=== PATIENT | male | born 1945 | race Caucasian/White ===

== ENCOUNTER 2017-09-09 03:52 | Inpatient (IN) | payer MEDICARE, BC ==
[2017-09-09 05:29] LABS: Amorphous Sediment,Urine Occasional /hpf; Appearance,Urine Cloudy (Clear); Bacteria,Urine Rare /hpf; Bilirubin,Urine Negative (Negative); Blood,Urine Moderate (Negative); Color,Urine Yellow; Glucose,Urine (UA) Negative (Negative); Ketones,Urine Negative (Negative); Leukocyte Esterase,Urine Large (Negative); Mucus,Urine Rare /hpf; Nitrite,Urine Positive (Negative); PH, Urine 6.5 (5.0-8.0); Protein,Urine Trace (Negative); RBC,Urine 13 /hpf (0-5); Specific Gravity,Urine 1.009 (1.001-1.035); Urobilinogen,Urine <2.0 mg/dL (<2.0); WBC,Urine >182 /hpf (0-5)
--- NOTE | 2017-09-09 06:27 | ED ---
Male Urogenital HPI - General Chief complaint: Urogenital Stated complaint: UTI Time Seen by Provider: 09/09/17 04:17 Source: patient, EMS Mode of arrival: EMS Limitations: no limitations - History of Present Illness Initial comments: 72 years old male comes in with complaints at term his James is not working well , also has a history of UTI, stated that he was seen for the UTIs at another hospital his urine cultures grew pseudomonas that it provides IV treatment. But he himself has no complaints right now no fever no chills no chest pain or shortness of breath no abdominal pain no frequency urgency dysuria - Related Data Allergies Allergy/AdvReac Type Severity Reaction Status Date / Time latex Allergy Rash/Hives Verified 09/09/17 03:59 Penicillins Allergy Rash/Hives Verified 09/09/17 03:59 tetanus immune globulin Allergy Rash/Hives Verified 09/09/17 03:59 Review of Systems ROS Statement: Those systems with pertinent positive or pertinent negative responses have been documented in the HPI. ROS Other: All systems not noted in ROS Statement are negative. Past Medical History Additional Past Medical History / Comment(s): multiple sclerosis. UTI. History of Any Multi-Drug Resistant Organisms: None Reported Past Surgical History: Cholecystectomy, Tonsillectomy Additional Past Surgical History / Comment(s): right leg ORIF. Past Psychological History: No Psychological Hx Reported Smoking Status: Former smoker Past Alcohol Use History: None Reported Past Drug Use History: None Reported General Exam - General Exam Comments Initial Comments: General: The patient is awake and alert, in no distress, and does not appear acutely ill. Skin: Skin is warm and dry and no rashes or lesions are noted. Eye: Pupils are equal, round and reactive to light, extra-ocular movements are intact; there is normal conjunctiva bilaterally. Ears, nose, mouth and throat: There are moist mucous membranes and no oral lesions. Neck: The neck is supple, there is no tenderness or JVD. Cardiovascular: There is a regular rate and rhythm. No murmur, rub or gallop is appreciated. Respiratory: To auscultation bilateral, no wheezing no rhonchi no distress respiratory gordon noticed Gastrointestinal: Soft, non-distended, non-tender abdomen without masses or organomegaly noted. There is no rebound or guarding present. Bowel sounds are unremarkable. Back: There is no tenderness to palpation in the midline. There is no obvious deformity. Musculoskeletal: Normal ROM, no tenderness, There is no pedal edema. There is no calf tenderness or swelling. No cords were appreciated. Neurological: CN II-XII intact, Cranial nerves III through XII are intact. There are no obvious motor or sensory deficits. Coordination appears grossly intact. Speech is normal. Psychiatric: Cooperative, appropriate mood & affect, normal judgment. Limitations: no limitations Course Vital Signs 09/09/17 03:55 Temperature 97.9 F Pulse Rate 96 Respiratory 20 Rate Blood Pressure 154/69 O2 Sat by Pulse 96 Oximetry family stated that he has no way to get around and previously oral antibiotic has not cured the UTIs is requesting admission for the IV antibiotics Medical Decision Making - Lab Data Lab Results 09/09/17 Range/Units 05:02 Urine Color Yellow Urine Appearance Cloudy (Clear) Urine pH 6.5 (5.0-8.0) Ur Specific [place] 1.009 (1.001-1.035) Urine Protein Trace H (Negative) Urine Glucose (UA) Negative (Negative) Urine Ketones Negative (Negative) Urine Blood Moderate H (Negative) Urine Nitrite Positive (Negative) Urine Bilirubin Negative (Negative) Urine Urobilinogen <2.0 (<2.0) mg/dL Ur Leukocyte Esterase Large H (Negative) Urine RBC 13 H (0-5) /hpf Urine WBC >182 H (0-5) /hpf Urine WBC Clumps Many H (None) /hpf Amorphous Sediment Occasional H (None) /hpf Urine Bacteria Rare H (None) /hpf Urine Mucus Rare H (None) /hpf Disposition Clinical Impression: UTI (urinary tract infection) Disposition: ADMITTED IP TO THIS [facility] Condition: Good Referrals: Nonstaff,Physician [Primary Care Provider] - 1-2 days
[2017-09-09] MEDS ORDERED: SODIUM CHLORIDE 0.9% 1,000 ML IV ONE (06:44)
[2017-09-09] MEDS ORDERED: cefTRIAXone IN SWFI 1,000 MG/10 ML SYRINGE IVP STA (06:46)
[2017-09-09 10:19] VITALS: BMI 34.4
[2017-09-09] MEDS ORDERED: CLOTRIMAZOLE 1% CREAM 15 GM TUBE TOPICAL PRN (10:51)
[2017-09-09 11:50] LABS: Glucose,Whole Blood 106 mg/dL (75-99)
[2017-09-09] MEDS: TAMSULOSIN 0.4 MG CAP.ER.24H PO SCH (11:57)
[2017-09-09] MEDS: lamoTRIgine 100 MG TAB PO SCH ×2 (11:58→22:00)
[2017-09-09] MEDS: LACOSAMIDE 150 MG TABLET PO SCH ×2 (12:18→22:22)
--- NOTE | 2017-09-09 12:36 | P.HPIM ---
History of Present Illness This is a pleasant 72 years old female with past medical history of multiple sclerosis, status post cholecystectomy, who presents because of recurrent urinary tract infection for the last 56 years. Patient states he has history of MS with neurogenic bladder status post indwelling James catheter for the last 1 year. And he has frequent urinary tract infections he has one in July, and the last one was about 2 weeks ago. He has a visiting doctor once a month with treatment for that. And as per significant other at bedside patient had positive culture for Pseudomonas on 07/24/2017. Over the last 2-3 days the significant others was noticed that his urine is becoming foul-smelling. And the catheters was blocked with difficult to flush started decided to come to the emergency room and his James catheter was change. Urine analysis was suspicion for infection and he was admitted to the hospital for further treatment. Patient also feeling generally weak which is usually happens when he have UTI as per patient and significant other. Patient denies abdominal pain. No chest pain. No dyspnea. No change in bowel habits or fever. Patient at baseline is bed-bound due to his MS disease and History of leg fracture Review of Systems CONSTITUTIONAL: No fever, no malaise, no fatigue. HEENT: No recent visual problems or hearing problems. Denied any sore throat. CARDIOVASCULAR: No orthopnea, PND, no palpitations, no syncope. PULMONARY: No shortness of breath, no cough, no hemoptysis. GASTROINTESTINAL: No diarrhea, no nausea, no vomiting, no abdominal pain. Normoactive bowel sounds. NEUROLOGICAL: No headaches, no weakness, no numbness. HEMATOLOGICAL: Denies any bleeding or petechiae. MUSCULOSKELETAL/RHEUMATOLOGICAL: Denies any joint pain, swelling, or any muscle pain. ENDOCRINE: Denies any polyuria or polydipsia. Past Medical History Additional Past Medical History / Comment(s): multiple sclerosis. UTI. History of Any Multi-Drug Resistant Organisms: None Reported Past Surgical History: Cholecystectomy, Tonsillectomy Additional Past Surgical History / Comment(s): right leg ORIF. Smoking Status: Former smoker Medications and Allergies Home Medications Medication Instructions Recorded Confirmed Type Aspirin EC [Ecotrin Low Dose] 81 mg PO DAILY 09/09/17 09/09/17 History Cholecalciferol [Vitamin D3] 1,000 unit PO BID 09/09/17 09/09/17 History Cyanocobalamin [Vitamin B-12 1,000 mcg SQ QMONTH 09/09/17 09/09/17 History Injection] Desenex Topical 1 applic TOPICAL BID PRN 09/09/17 09/09/17 History Dimethyl Fumarate [Tecfidera] 240 mg PO BID 09/09/17 09/09/17 History Furosemide [Lasix] 40 mg PO DAILY 09/09/17 09/09/17 History Lacosamide [Vimpat] 75 mg PO TID 09/09/17 09/09/17 History Lisinopril [Zestril] 10 mg PO DAILY 09/09/17 09/09/17 History Menthol/Zinc Oxide [Calmoseptine 1 applic TOPICAL BID 09/09/17 09/09/17 History Ointment] Polyethylene Glycol 3350 [Miralax] 17 gm PO BID 09/09/17 09/09/17 History Ranitidine HCl [Zantac] 150 mg PO BID 09/09/17 09/09/17 History Tamsulosin HCl [Flomax] 0.4 mg PO DAILY 09/09/17 09/09/17 History fentaNYL 50MCG/HR PATCH [Duragesic 50 mcg TRANSDERM Q72H 09/09/17 09/09/17 History 50MCG/HR] lamoTRIgine [LaMICtal] 200 mg PO BID 09/09/17 09/09/17 History Allergies Allergy/AdvReac Type Severity Reaction Status Date / Time latex Allergy Rash/Hives Verified 09/09/17 09:52 Penicillins Allergy Rash/Hives Verified 09/09/17 09:52 tetanus immune globulin Allergy Rash/Hives Verified 09/09/17 09:52 Physical Exam Vitals: Vital Signs Temp Pulse Pulse Resp BP BP Pulse Ox 09/09/17 08:37 97.9 F 82 18 144/75 98 09/09/17 08:21 97.2 F L 83 16 130/68 100 09/09/17 03:55 97.9 F 96 20 154/69 96 Intake and Output 09/08/17 09/09/17 09/09/17 22:59 06:59 14:59 Other: Voiding Method Indwelling Catheter Weight 108.862 kg 108.862 kg GENERAL: The patient is alert and oriented x3, not in any acute distress. Well developed, well nourished. HEENT: Pupils are round and equally reacting to light. EOMI. No scleral icterus. No conjunctival pallor. Normocephalic, atraumatic. No pharyngeal erythema. No thyromegaly. CARDIOVASCULAR: S1 and S2 present. No murmurs, rubs, or gallops. PULMONARY: Chest is clear to auscultation, no wheezing or crackles. ABDOMEN: Soft, nontender, nondistended, normoactive bowel sounds. No palpable organomegaly. genitourinary system: James catheter in a Place, working. With no surrounding leakage. Genitourinary examination was unremarkable MUSCULOSKELETAL: No joint swelling or deformity. EXTREMITIES: No cyanosis, clubbing, or pedal edema. NEUROLOGICAL: Gross neurological examination did not reveal any focal deficits. SKIN: No rashes. Results Labs: Abnormal Lab Results - Last 24 Hours (Table) 09/09/17 09/09/17 Range/Units 05:02 11:48 POC Glucose (mg/dL) 106 H (75-99) mg/dL Urine Protein Trace H (Negative) Urine Blood Moderate H (Negative) Ur Leukocyte Esterase Large H (Negative) Urine RBC 13 H (0-5) /hpf Urine WBC >182 H (0-5) /hpf Urine WBC Clumps Many H (None) /hpf Amorphous Sediment Occasional H (None) /hpf Urine Bacteria Rare H (None) /hpf Urine Mucus Rare H (None) /hpf Microbiology - Last 24 Hours (Table) 09/09/17 05:02 Urine Culture - Preliminary Urine,Catheterized Thrombosis Risk Factor Assmnt - Choose All That Apply Any of the Below Risk Factors Present?: Yes Each Factor Represents 1 point: Medical pt on bed rest, Minor surgery planned, Varicose veins Other Risk Factors: Yes Each Risk Factor Represents 2 Points: Age 61-74 years Other congenital or acquired thrombophilia - If yes, enter type in comment: No Thrombosis Risk Factor Assessment Total Risk Factor Score: 5 Thrombosis Risk Factor Assessment Level: High Risk Assessment and Plan Plan: -Recurrent Urinary tract infection, failed outpatient treatment. UA is suspicious for infection. UC: Pending. Patient was started on ceftriaxone will continue with that. We'll ask for infectious disease consultation. -Recurrent urinary tract infection. On on indwelling James catheter. Last for urological evaluation. -Multiple sclerosis, continue same treatment -Neurogenic bladder, secondary to above DVT prophylaxis subcutaneous heparin GI prophylaxis Pepcid Prognosis is guarded
[2017-09-09 13:16] LABS: Basophils % (A) 0 %; Eosinophils # (A) 0.1 k/uL (0-0.7); Eosinophils % (A) 2 %; HCT 36.3 % (39.0-53.0); HGB 12.1 gm/dL (13.0-17.5); Lymphocytes # (A) 0.9 k/uL (1.0-4.8); Lymphocytes % (A) 14 %; MCH 31.7 pg (25.0-35.0); MCHC 33.4 g/dL (31.0-37.0); MCV 94.9 fL (80.0-100.0); Mean Platelet Volume 6.7; Monocytes # (A) 0.5 k/uL (0-1.0); Monocytes % (A) 7 %; Neutrophils # (A) 5.1 k/uL (1.3-7.7); Neutrophils % (A) 75 %; Platelet Count 257 k/uL (150-450); RBC 3.82 m/uL (4.30-5.90); RDW 13.6 % (11.5-15.5); WBC 6.8 k/uL (3.8-10.6)
[2017-09-09 13:26] LABS: Anion Gap 8 mmol/L; Blood Urea Nitrogen 14 mg/dL (9-20); Calcium 9.4 mg/dL (8.4-10.2); Carbon Dioxide 24 mmol/L (22-30); Chloride 106 mmol/L (98-107); Glucose 92 mg/dL (74-99); Potassium 4.2 mmol/L (3.5-5.1); Sodium 138 mmol/L (137-145)
[2017-09-09 13:29] LABS: INR 1.1 (<1.2); Partial Thromboplastin Time 22.2 sec (22.0-30.0); Prothrombin Time 10.7 sec (9.0-12.0)
[2017-09-09] MEDS: HEPARIN SODIUM,PORCINE 5,000 UNIT/ML 1 ML VIAL SQ SCH ×2 (15:43→22:00)
[2017-09-09] MEDS ORDERED: LACOSAMIDE 50 MG TABLET PO SCH (18:06)
[2017-09-09] MEDS: LACOSAMIDE 50 MG TABLET PO SCH (18:16)
--- NOTE | 2017-09-09 19:17 | P.GSCN ---
History of Present Illness Consult date: 09/09/17 Reason for Consult: Urinary Retention, UTI Requesting physician: Evelio E Sheet History of present illness: The patient is a 72-year-old white male with advanced multiple sclerosis. He developed acute urinary retention in late 2015. A James catheter was placed, with a return of 800 mL. Flomax was prescribed, with the intent of him being given a voiding trial. However, this has not been done due to his inability to ambulate. The James catheter is being changed every 2 weeks. It has recently become occluded. He had gross hematuria 2 weeks ago. He has been treated with oral antibiotics for a UTI. Review of Systems - Constitutional Denies chills, Denies fever, Denies weakness - Cardiovascular Denies chest pain - Respiratory Denies dyspnea - Genitourinary Reports urinary retention, Denies hematuria Past Medical History Additional Past Medical History / Comment(s): multiple sclerosis. UTI. History of Any Multi-Drug Resistant Organisms: None Reported Past Surgical History: Cholecystectomy, Tonsillectomy Additional Past Surgical History / Comment(s): right leg ORIF. Smoking Status: Former smoker Medications and Allergies Home Medications Medication Instructions Recorded Confirmed Type Aspirin EC [Ecotrin Low Dose] 81 mg PO DAILY 09/09/17 09/09/17 History Cholecalciferol [Vitamin D3] 1,000 unit PO BID 09/09/17 09/09/17 History Cyanocobalamin [Vitamin B-12 1,000 mcg SQ QMONTH 09/09/17 09/09/17 History Injection] Desenex Topical 1 applic TOPICAL BID PRN 09/09/17 09/09/17 History Dimethyl Fumarate [Tecfidera] 240 mg PO BID 09/09/17 09/09/17 History Furosemide [Lasix] 40 mg PO DAILY 09/09/17 09/09/17 History Lacosamide [Vimpat] 75 mg PO TID 09/09/17 09/09/17 History Lisinopril [Zestril] 10 mg PO DAILY 09/09/17 09/09/17 History Menthol/Zinc Oxide [Calmoseptine 1 applic TOPICAL BID 09/09/17 09/09/17 History Ointment] Polyethylene Glycol 3350 [Miralax] 17 gm PO BID 09/09/17 09/09/17 History Ranitidine HCl [Zantac] 150 mg PO BID 09/09/17 09/09/17 History Tamsulosin HCl [Flomax] 0.4 mg PO DAILY 09/09/17 09/09/17 History fentaNYL 50MCG/HR PATCH [Duragesic 50 mcg TRANSDERM Q72H 09/09/17 09/09/17 History 50MCG/HR] lamoTRIgine [LaMICtal] 200 mg PO BID 09/09/17 09/09/17 History Allergies Allergy/AdvReac Type Severity Reaction Status Date / Time latex Allergy Rash/Hives Verified 09/09/17 09:52 Penicillins Allergy Rash/Hives Verified 09/09/17 09:52 tetanus immune globulin Allergy Rash/Hives Verified 09/09/17 09:52 Surgical - Exam Vital Signs Temp Pulse Resp BP Pulse Ox 97.9 F 96 20 154/69 96 09/09/17 03:55 09/09/17 03:55 09/09/17 03:55 09/09/17 03:55 09/09/17 03:55 - General well developed, well nourished, no distress - Respiratory normal respiratory effort - Abdomen Abdomen: soft, non tender, no masses Hernia: none - Genitourinary normal penis with no external lesions, testicles non-tender - Rectum Prostate is mildly enlarged and smooth. Rectum: normal sphincter tone, no masses Results - Labs 09/09/17 12:54 09/09/17 12:54 Abnormal Lab Results - Last 24 Hours (Table) 09/09/17 09/09/17 09/09/17 Range/Units 05:02 11:48 12:54 RBC 3.82 L (4.30-5.90) m/uL Hgb 12.1 L (13.0-17.5) gm/dL Hct 36.3 L (39.0-53.0) % Lymphocytes # 0.9 L (1.0-4.8) k/uL Creatinine (0.66-1.25) mg/dL POC Glucose (mg/dL) 106 H (75-99) mg/dL Urine Protein Trace H (Negative) Urine Blood Moderate H (Negative) Ur Leukocyte Esterase Large H (Negative) Urine RBC 13 H (0-5) /hpf Urine WBC >182 H (0-5) /hpf Urine WBC Clumps Many H (None) /hpf Amorphous Sediment Occasional H (None) /hpf Urine Bacteria Rare H (None) /hpf Urine Mucus Rare H (None) /hpf 09/09/17 Range/Units 12:54 RBC (4.30-5.90) m/uL Hgb (13.0-17.5) gm/dL Hct (39.0-53.0) % Lymphocytes # (1.0-4.8) k/uL Creatinine 0.57 L (0.66-1.25) mg/dL POC Glucose (mg/dL) (75-99) mg/dL Urine Protein (Negative) Urine Blood (Negative) Ur Leukocyte Esterase (Negative) Urine RBC (0-5) /hpf Urine WBC (0-5) /hpf Urine WBC Clumps (None) /hpf Amorphous Sediment (None) /hpf Urine Bacteria (None) /hpf Urine Mucus (None) /hpf Microbiology - Last 24 Hours (Table) 09/09/17 05:02 Urine Culture - Preliminary Urine,Catheterized Diabetes panel 09/09/17 Range/Units 12:54 Sodium 138 (137-145) mmol/L Potassium 4.2 (3.5-5.1) mmol/L Chloride 106 (98-107) mmol/L Carbon Dioxide 24 (22-30) mmol/L BUN 14 (9-20) mg/dL Creatinine 0.57 L (0.66-1.25) mg/dL Glucose 92 (74-99) mg/dL Calcium 9.4 (8.4-10.2) mg/dL Calcium panel 09/09/17 Range/Units 12:54 Calcium 9.4 (8.4-10.2) mg/dL Pituitary panel 09/09/17 Range/Units 12:54 Sodium 138 (137-145) mmol/L Potassium 4.2 (3.5-5.1) mmol/L Chloride 106 (98-107) mmol/L Carbon Dioxide 24 (22-30) mmol/L BUN 14 (9-20) mg/dL Creatinine 0.57 L (0.66-1.25) mg/dL Glucose 92 (74-99) mg/dL Calcium 9.4 (8.4-10.2) mg/dL Adrenal panel 09/09/17 Range/Units 12:54 Sodium 138 (137-145) mmol/L Potassium 4.2 (3.5-5.1) mmol/L Chloride 106 (98-107) mmol/L Carbon Dioxide 24 (22-30) mmol/L BUN 14 (9-20) mg/dL Creatinine 0.57 L (0.66-1.25) mg/dL Glucose 92 (74-99) mg/dL Calcium 9.4 (8.4-10.2) mg/dL Assessment and Plan (1) Urinary retention Current Visit: Yes Status: Acute Code(s): R33.9 - RETENTION OF URINE, UNSPECIFIED SNOMED Code(s): 438428407 Plan: I had a lengthy discussion with the patient regarding his urinary retention. He has not undergone urodynamic testing. However, he is unable to ambulate and for this reason and cysts that the catheter remain in place. He states that even if he was able to void, the use of a bedside urinal this unacceptable to him. Likewise, he does not consider intermittent self-catheterization a viable option. I explained to him that a chronic indwelling catheter carries with it the risk of infection. I explained that intermittent self-catheterization is associated with a lower risk of infection. He states that he was treated for recurrent UTIs even before he had the catheter, perhaps due to incomplete bladder emptying. We discussed a suprapubic cystostomy tube, which I do not believe offers him an advantage over an indwelling James catheter. He is currently asymptomatic, and in view of this I would define his current condition as bacteriuria rather than a UTI. I explained to him that patients with chronic indwelling catheters are typically treated for a UTI only when symptomatic. His James catheter was changed this morning. I suggested that if his James catheter is irrigated 3 times weekly with Renacidin, this may reduce the problems he is having with James catheter occlusion. I have thus left with him a prescription for Renacidin. Time with Patient: Greater than 30
[2017-09-09] MEDS ORDERED: FAMOTIDINE 20 MG/2 ML VIAL IV SCH (21:00)
--- NOTE | 2017-09-09 21:08 | P.CONS ---
History of Present Illness - Reason for Consult Consult date: 09/09/17 - Chief Complaint weakness - History of Present Illness 72-year-old male who has a history of progressive multiple sclerosis. This continued to progress over time. He relates that he is no function of his lower extremities and over the last several months she's been having increasing weakness to his left arm. He is due to see his neurologist in the [place] area next month. Overall goal would to be hopefully have some further change of his medications to try to have improvement of progression of the disease. He relates he has a visiting physician and in general is been somewhat stable except over the last couple of months he's been having difficulties with urinary tract infection. He relates that the urine is strong in odor, and he's had difficulties with potential blockage of his catheter as well as some increasing weakness. The patient was having great difficulties with a catheter he can no longer be flush it was leaking, he was so weak that he could not assist his and consequently EMS was called and he was brought to hospital. His related that he has a recent outpatient urinary culture with evidence of Pseudomonas. The patient relates that he has no urinary sensation from his MS and has had a indwelling catheter now for some time. The possibility of intermittent straight catheterization apparently is not an option as long as he is at home under the care of his . This living situation is what he absolutely prefers at this time while his is able to care for him with the help of the visiting physician, home care nurse, and home health aide who helps with his baths. Is otherwise is able to flush the catheter but is not able to change them, she leaves this for the home care nurse. He was feeling quite weak did not take his temperature. Review of Systems 72-year-old male who relates he still feels poorly, his weakness has worsened as of late HEENT:Denies headache or acute visual change. Denies sinus or mouth discomforts. Denies neck stiffness or pain. Denies significant oral cavity pain. Denies difficulty on swallowing. Lungs: Denies significant shortness of breath, cough, sputum production, or hemoptysis. Cardiovascular: Denies significant shortness of breath, chest pain, chest wall pain, orthopnea, dyspnea on exertion, syncope Gastrointestinal:Denies nausea, vomiting, diarrhea, constipation, hematemesis, melena, hematochezia. No no significant change of bowel habit noticed. Musculoskeletal: Has the profound generalized weakness from his MS left arm is worsening as of late Skin: Denies new rash or lesions. No new ulcers or wounds are related.. Neuro: MS has been worse as of late, left arm is worsening making it more difficult to participate in daily activities Psychiatric:Denies anxiety or depression. Endocrine: As MS has worsened recently he has more fatigue Past Medical History Additional Past Medical History / Comment(s): multiple sclerosis. UTI. History of Any Multi-Drug Resistant Organisms: None Reported Past Surgical History: Cholecystectomy, Tonsillectomy Additional Past Surgical History / Comment(s): right leg ORIF. Additional Psychological History / Comment(s): lives with family home with his . 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 No experience. No international travel. No animals in the home. 3 adult children, the daughter occasionally does come and help. Did smoke as a younger man but it's been many years, denies significant alcohol or recreational drug use Smoking Status: Former smoker Medications and Allergies Home Medications and Allergies Comment(s): Current Medications Clotrimazole (Lotrimin Cream) 1 applic TOPICAL BID PRN PRN Reason: Rash Famotidine (Pepcid) 20 mg PO Q12HR [facility] Fentanyl (Duragesic 50mcg/Hr Patch) 1 patch TRANSDERM Q72H [facility] Last Admin: 09/09/17 12:06 Dose: 1 patch Furosemide (Lasix) 40 mg PO DAILY [facility] Heparin Sodium (Porcine) (Heparin) 5,000 unit SQ Q12HR [facility] Last Admin: 09/09/17 15:43 Dose: 5,000 unit Ceftazidime 2 gm/ Sodium (Chloride) 100 mls @ 100 mls/hr IVPB Q8HR [facility] Last Admin: 09/09/17 15:43 Dose: 100 mls/hr Lacosamide (Vimpat) 75 mg PO TID [facility] Last Admin: 09/09/17 18:16 Dose: 75 mg Lamotrigine (Lamictal) 200 mg PO BID [facility] Last Admin: 09/09/17 11:58 Dose: 200 mg Lisinopril (Zestril) 10 mg PO DAILY [facility] Dimethyl Fumarate [ (Tecfidera] 240 Mg) 240 mg PO BID [facility] Last Admin: 09/09/17 18:59 Dose: Not Given Polyethylene Glycol (Miralax) 17 gm PO BID [facility] Tamsulosin HCl (Flomax) 0.4 mg PO DAILY [facility] Last Admin: 09/09/17 11:57 Dose: 0.4 mg Home Medications Medication Instructions Recorded Confirmed Type Aspirin EC [Ecotrin Low Dose] 81 mg PO DAILY 09/09/17 09/09/17 History Cholecalciferol [Vitamin D3] 1,000 unit PO BID 09/09/17 09/09/17 History Cyanocobalamin [Vitamin B-12 1,000 mcg SQ QMONTH 09/09/17 09/09/17 History Injection] Desenex Topical 1 applic TOPICAL BID PRN 09/09/17 09/09/17 History Dimethyl Fumarate [Tecfidera] 240 mg PO BID 09/09/17 09/09/17 History Furosemide [Lasix] 40 mg PO DAILY 09/09/17 09/09/17 History Lacosamide [Vimpat] 75 mg PO TID 09/09/17 09/09/17 History Lisinopril [Zestril] 10 mg PO DAILY 09/09/17 09/09/17 History Menthol/Zinc Oxide [Calmoseptine 1 applic TOPICAL BID 09/09/17 09/09/17 History Ointment] Polyethylene Glycol 3350 [Miralax] 17 gm PO BID 09/09/17 09/09/17 History Ranitidine HCl [Zantac] 150 mg PO BID 09/09/17 09/09/17 History Tamsulosin HCl [Flomax] 0.4 mg PO DAILY 09/09/17 09/09/17 History fentaNYL 50MCG/HR PATCH [Duragesic 50 mcg TRANSDERM Q72H 09/09/17 09/09/17 History 50MCG/HR] lamoTRIgine [LaMICtal] 200 mg PO BID 09/09/17 09/09/17 History Allergies Allergy/AdvReac Type Severity Reaction Status Date / Time latex Allergy Rash/Hives Verified 09/09/17 09:52 Penicillins Allergy Rash/Hives Verified 09/09/17 09:52 tetanus immune globulin Allergy Rash/Hives Verified 09/09/17 09:52 Physical Exam Vitals: Vital Signs Temp Pulse Pulse Resp BP BP Pulse Ox 09/09/17 20:02 96.6 F L 85 14 127/63 98 09/09/17 16:00 94 16 09/09/17 14:25 98 F 94 16 143/64 99 09/09/17 08:37 97.9 F 82 18 144/75 98 09/09/17 08:21 97.2 F L 83 16 130/68 100 09/09/17 03:55 97.9 F 96 20 154/69 96 Intake and Output 09/09/17 09/09/17 09/09/17 06:59 14:59 22:59 Intake Total 700 Output Total 1050 Balance 700 -1050 Intake: Intake, IV Titration 700 Amount Sodium Chloride 0.9% 1, 600 000 ml @ 75 mls/hr IV . [id number] [facility] Rx#:[id number] cefTAZidime 2 gm In 100 Sodium Chloride 0.9% 100 ml @ 100 mls/hr IVPB Q8HR [facility] Rx#:[id number] Output: Urine 1050 Other: Voiding Method Indwelling Catheter Indwelling Catheter # Bowel Movements 1 Weight 108.862 kg 108.862 kg 72-year-old male with MS is quite uncomfortable at this time. With the assistance of a variable to reposition him and get him slightly more comfortable. He does relate that he has a high airflow air mattress at home. HEENT: Anicteric conjunctiva are pink and moist nasal mucosa grossly intact without significant lesions, there is no thrush. Neck: The neck is supple without significant lymphadenopathy or thyromegaly. Lungs: Good bilateral air entry without significant crackles or wheezing. There is no significant bronchial sounds. There is no egophony or dullness. Heart: Regular rate and rhythm with an audible S1-S2, no S3 no S4. There is no significant murmur click or rub, PMI was nondisplaced. Abdomen: Positive bowel sounds soft and nontender without palpable masses or organomegaly. There was no guarding or rebound. Extremities: There is some minimal muscular wasting to the upper extremities, lower extremities have muscular wasting, has modestly good usage of the right upper extremity he has weakness of the left arm. Neuro: Awake alert oriented to person place and time. He has flaccid lower extremities, mild hyperreflexia and fasciculations are noted when stimulated. He does have function the left arm but he has weakness, and has pain with range of motion to the shoulder area. Right arm has a bit more strength and he has no pain with range of motion to the right arm. James catheters in place at this time urine is not bloody Results CBC & Chem 7: 09/09/17 12:54 09/09/17 12:54 Labs: Abnormal Lab Results - Last 24 Hours (Table) 09/09/17 09/09/17 09/09/17 Range/Units 05:02 11:48 12:54 RBC 3.82 L (4.30-5.90) m/uL Hgb 12.1 L (13.0-17.5) gm/dL Hct 36.3 L (39.0-53.0) % Lymphocytes # 0.9 L (1.0-4.8) k/uL Creatinine (0.66-1.25) mg/dL POC Glucose (mg/dL) 106 H (75-99) mg/dL Urine Protein Trace H (Negative) Urine Blood Moderate H (Negative) Ur Leukocyte Esterase Large H (Negative) Urine RBC 13 H (0-5) /hpf Urine WBC >182 H (0-5) /hpf Urine WBC Clumps Many H (None) /hpf Amorphous Sediment Occasional H (None) /hpf Urine Bacteria Rare H (None) /hpf Urine Mucus Rare H (None) /hpf 09/09/17 Range/Units 12:54 RBC (4.30-5.90) m/uL Hgb (13.0-17.5) gm/dL Hct (39.0-53.0) % Lymphocytes # (1.0-4.8) k/uL Creatinine 0.57 L (0.66-1.25) mg/dL POC Glucose (mg/dL) (75-99) mg/dL Urine Protein (Negative) Urine Blood (Negative) Ur Leukocyte Esterase (Negative) Urine RBC (0-5) /hpf Urine WBC (0-5) /hpf Urine WBC Clumps (None) /hpf Amorphous Sediment (None) /hpf Urine Bacteria (None) /hpf Urine Mucus (None) /hpf Microbiology - Last 24 Hours (Table) 09/09/17 05:02 Urine Culture - Preliminary Urine,Catheterized Laboratory Results WBC 6.8 k/uL (3.8-10.6) 09/09/17 12:54 RBC 3.82 m/uL (4.30-5.90) L 09/09/17 12:54 Hgb 12.1 gm/dL (13.0-17.5) L 09/09/17 12:54 Hct 36.3 % (39.0-53.0) L 09/09/17 12:54 MCV 94.9 fL (80.0-100.0) 09/09/17 12:54 MCH 31.7 pg (25.0-35.0) 09/09/17 12:54 MCHC 33.4 g/dL (31.0-37.0) 09/09/17 12:54 RDW 13.6 % (11.5-15.5) 09/09/17 12:54 Plt Count 257 k/uL (150-450) 09/09/17 12:54 Neutrophils % 75 % 09/09/17 12:54 Lymphocytes % 14 % 09/09/17 12:54 Monocytes % 7 % 09/09/17 12:54 Eosinophils % 2 % 09/09/17 12:54 Basophils % 0 % 09/09/17 12:54 Neutrophils # 5.1 k/uL (1.3-7.7) 09/09/17 12:54 Lymphocytes # 0.9 k/uL (1.0-4.8) L 09/09/17 12:54 Monocytes # 0.5 k/uL (0-1.0) 09/09/17 12:54 Eosinophils # 0.1 k/uL (0-0.7) 09/09/17 12:54 Basophils # 0.0 k/uL (0-0.2) 09/09/17 12:54 PT 10.7 sec (9.0-12.0) 09/09/17 12:54 INR 1.1 (<1.2) 09/09/17 12:54 APTT 22.2 sec (22.0-30.0) 09/09/17 12:54 Sodium 138 mmol/L (137-145) 09/09/17 12:54 Potassium 4.2 mmol/L (3.5-5.1) 09/09/17 12:54 Chloride 106 mmol/L (98-107) 09/09/17 12:54 Carbon Dioxide 24 mmol/L (22-30) 09/09/17 12:54 Anion Gap 8 mmol/L 09/09/17 12:54 BUN 14 mg/dL (9-20) 09/09/17 12:54 Creatinine 0.57 mg/dL (0.66-1.25) L 09/09/17 12:54 Est GFR (CKD-EPI)AfAm >90 (>60 ml/min/1.73 sqM) 09/09/17 12:54 Est GFR (CKD-EPI)NonAf >90 (>60 ml/min/1.73 sqM) 09/09/17 12:54 Glucose 92 mg/dL (74-99) 09/09/17 12:54 POC Glucose (mg/dL) 106 mg/dL (75-99) H 09/09/17 11:48 POC Glu Typing Checker ID Traci Brooks 09/09/17 11:48 Calcium 9.4 mg/dL (8.4-10.2) 09/09/17 12:54 Urine Color Yellow 09/09/17 05:02 Urine Appearance Cloudy (Clear) 09/09/17 05:02 Urine pH 6.5 (5.0-8.0) 09/09/17 05:02 Ur Specific [place] 1.009 (1.001-1.035) 09/09/17 05:02 Urine Protein Trace (Negative) H 09/09/17 05:02 Urine Glucose (UA) Negative (Negative) 09/09/17 05:02 Urine Ketones Negative (Negative) 09/09/17 05:02 Urine Blood Moderate (Negative) H 09/09/17 05:02 Urine Nitrite Positive (Negative) 09/09/17 05:02 Urine Bilirubin Negative (Negative) 09/09/17 05:02 Urine Urobilinogen <2.0 mg/dL (<2.0) 09/09/17 05:02 Ur Leukocyte Esterase Large (Negative) H 09/09/17 05:02 Urine RBC 13 /hpf (0-5) H 09/09/17 05:02 Urine WBC >182 /hpf (0-5) H 09/09/17 05:02 Urine WBC Clumps Many /hpf (None) H 09/09/17 05:02 Amorphous Sediment Occasional /hpf (None) H 09/09/17 05:02 Urine Bacteria Rare /hpf (None) H 09/09/17 05:02 Urine Mucus Rare /hpf (None) H 09/09/17 05:02 Microbiology 09/09/17 05:02 Urine,Catheterized Urine Culture - Preliminary Assessment and Plan (1) Urinary retention Current Visit: Yes Status: Acute Code(s): R33.9 - RETENTION OF URINE, UNSPECIFIED SNOMED Code(s): 459450662 (2) UTI (urinary tract infection) Narrative/Plan: 72-year-old male presents the emergency center via EMS because of difficulties with his urinary catheter, is not able to improve the leakage and the patient was becoming more weak. As noted the patient does have progressive multiple sclerosis and as of late has been having some difficulties with his disease and they're trying to see has MS specialist in the next month or so. During the last several weeks he has had difficulties with his urinary system and that there is been cloudy foul-smelling urine and there is been difficulties with the urinary catheter. As noted intermittent straight catheterization apparently is not an option for him while he is in the home setting which is a preferred place at this time since his is able to care for him with the assistance of visiting physician, visiting nurse and home and school visitor. The patient apparently has had an outpatient culture as of late that showed pseudomonas aeruginosa likely not treatable with oral medications. With this information antibiotic therapy with ceftazidime has been started. Fortunately the patient does not have significant sepsis but current flare of his MS could be in the basis of underlying infection, and with his general immunocompromise and inability to feel his urinary system it is unclear if he is having other urinary symptoms at this time. Urinary catheter has been changed. Antibiotic therapy has been started at this time planning at least a short course of therapy until there is a bit more data. Urological consultation is noted and bladder flushes are being suggested once there is no evidence of active infection. Current Visit: Yes Status: Acute Code(s): N39.0 - URINARY TRACT INFECTION, SITE NOT SPECIFIED SNOMED Code(s): 68156815 (3) Multiple sclerosis, primary progressive Current Visit: Yes Status: Acute Code(s): G35 - MULTIPLE SCLEROSIS SNOMED Code(s): 444663277
[2017-09-09] MEDS: FAMOTIDINE 20 MG TAB PO SCH (22:00)
[2017-09-09] MEDS: POLYETHYLENE GLYCOL 3350 17 GM POWD.PACK PO SCH (22:00)
[2017-09-10] MEDS: ACETAMINOPHEN TAB 325 MG TAB PO PRN (08:27)
[2017-09-10 08:28] LABS: Basophils % (A) 0 %; Eosinophils # (A) 0.1 k/uL (0-0.7); Eosinophils % (A) 3 %; HCT 37.1 % (39.0-53.0); HGB 12.1 gm/dL (13.0-17.5); Lymphocytes # (A) 0.9 k/uL (1.0-4.8); Lymphocytes % (A) 20 %; MCH 31.3 pg (25.0-35.0); MCHC 32.5 g/dL (31.0-37.0); MCV 96.5 fL (80.0-100.0); Mean Platelet Volume 6.7; Monocytes # (A) 0.4 k/uL (0-1.0); Monocytes % (A) 9 %; Neutrophils # (A) 2.7 k/uL (1.3-7.7); Neutrophils % (A) 65 %; Platelet Count 239 k/uL (150-450); RBC 3.85 m/uL (4.30-5.90); RDW 13.5 % (11.5-15.5); WBC 4.2 k/uL (3.8-10.6)
[2017-09-10] MEDS: FAMOTIDINE 20 MG TAB PO SCH ×2 (08:32→22:28)
[2017-09-10] MEDS: FUROSEMIDE 40 MG TAB PO SCH (08:32)
[2017-09-10] MEDS: HEPARIN SODIUM,PORCINE 5,000 UNIT/ML 1 ML VIAL SQ SCH ×2 (08:32→22:27)
[2017-09-10] MEDS: LISINOPRIL 10 MG TAB PO SCH (08:33)
[2017-09-10] MEDS: lamoTRIgine 100 MG TAB PO SCH ×2 (08:33→22:28)
[2017-09-10] MEDS: TAMSULOSIN 0.4 MG CAP.ER.24H PO SCH (08:33)
[2017-09-10] MEDS: POLYETHYLENE GLYCOL 3350 17 GM POWD.PACK PO SCH ×2 (08:33→22:27)
[2017-09-10 08:48] LABS: Anion Gap 8 mmol/L; Calcium 9.2 mg/dL (8.4-10.2); Carbon Dioxide 20 mmol/L (22-30); Chloride 110 mmol/L (98-107); Glucose 93 mg/dL (74-99); Sodium 138 mmol/L (137-145)
[2017-09-10 08:52] LABS: Blood Urea Nitrogen 9 mg/dL (9-20); Potassium 4.9 mmol/L (3.5-5.1)
[2017-09-10] MEDS ORDERED: cefTRIAXone IN SWFI 1,000 MG/10 ML SYRINGE IVP SCH (09:00)
[2017-09-10] MEDS: LACOSAMIDE 50 MG TABLET PO SCH ×3 (09:47→22:27)
--- NOTE | 2017-09-10 17:00 | P.PN ---
Subjective This is a pleasant 72 years old female with past medical history of multiple sclerosis, status post cholecystectomy, who presents because of recurrent urinary tract infection for the last 5-6 years. Patient states he has history of MS with neurogenic bladder status post indwelling James catheter for the last 1 year. And he has frequent urinary tract infections he has one in July, and the last one was about 2 weeks ago. He has a visiting doctor once a month with treatment for that. And as per significant other at bedside patient had positive culture for Pseudomonas on 07/24/2017. Over the last 2-3 days the significant others was noticed that his urine is becoming foul-smelling. And the catheters was blocked with difficult to flush started decided to come to the emergency room and his James catheter was change. Urine analysis was suspicion for infection and he was admitted to the hospital for further treatment. Patient also feeling generally weak which is usually happens when he have UTI as per patient and significant other. Patient denies abdominal pain. No chest pain. No dyspnea. No change in bowel habits or fever. Patient at baseline is bed-bound due to his MS disease and History of leg fracture Objective - Vital Signs Vital signs: Vital Signs Temp 98.1 F 09/10/17 15:28 Pulse 99 09/10/17 15:28 Resp 16 09/10/17 15:28 BP 126/86 09/10/17 15:28 Pulse Ox 94 L 09/10/17 15:28 Intake & Output 09/09/17 09/10/17 09/10/17 18:59 06:59 18:59 Intake Total 700 490 Output Total 2650 Balance 700 -2160 Weight 108.862 kg Intake: Intake, IV Titration 700 250 Amount Sodium Chloride 0.9% 1, 600 250 000 ml @ 75 mls/hr IV . [id number] [facility] Rx#:[id number] cefTAZidime 2 gm In 100 Sodium Chloride 0.9% 100 ml @ 100 mls/hr IVPB Q8HR [facility] Rx#:[id number] Oral 240 Output: Urine 2650 Other: Voiding Method Indwelling Catheter Indwelling Catheter Indwelling Catheter # Bowel Movements 1 - Labs CBC & Chem 7: 09/10/17 07:09 09/10/17 07:09 Labs: Abnormal Lab Results - Last 24 Hours (Table) 09/10/17 09/10/17 Range/Units 07:09 07:09 RBC 3.85 L (4.30-5.90) m/uL Hgb 12.1 L (13.0-17.5) gm/dL Hct 37.1 L (39.0-53.0) % Lymphocytes # 0.9 L (1.0-4.8) k/uL Chloride 110 H (98-107) mmol/L Carbon Dioxide 20 L (22-30) mmol/L Creatinine 0.53 L (0.66-1.25) mg/dL Microbiology - Last 24 Hours (Table) 09/09/17 05:02 Urine Culture - Final Urine,Catheterized Assessment and Plan Plan: -Recurrent Urinary tract infection, failed outpatient treatment. UA is suspicious for infection. UC: Pending. Infectious disease consult is appreciated, patient was started on ceftazidime in view of his history of pure positive culture for Pseudomonas last month. Urological evaluation is appreciated 2, he has long discussion with the patient, please refer to his note , the patient desires to keep the indwelling James catheter with prescription for Renacidin to reduce the problem of catheter obstruction -Generalized weakness, mostly related to the above, his infection might worsen his MS disease -Recurrent urinary tract infection. On on indwelling James catheter. Last for urological evaluation. -Multiple sclerosis, continue same treatment -Neurogenic bladder, secondary to above DVT prophylaxis subcutaneous heparin GI prophylaxis Pepcid Prognosis is guarded
--- NOTE | 2017-09-10 21:11 | P.PN ---
Subjective Progress Note Date: 09/10/17 72-year-old male who has a history of progressive multiple sclerosis. This continued to progress over time. He relates that he is no function of his lower extremities and over the last several months she's been having increasing weakness to his left arm. He is due to see his neurologist in the [place] area next month. Overall goal would to be hopefully have some further change of his medications to try to have improvement of progression of the disease. He relates he has a visiting physician and in general is been somewhat stable except over the last couple of months he's been having difficulties with urinary tract infection. He relates that the urine is strong in odor, and he's had difficulties with potential blockage of his catheter as well as some increasing weakness. The patient was having great difficulties with a catheter he can no longer be flush it was leaking, he was so weak that he could not assist his and consequently EMS was called and he was brought to hospital. His related that he has a recent outpatient urinary culture with evidence of Pseudomonas. The patient relates that he has no urinary sensation from his MS and has had a indwelling catheter now for some time. The possibility of intermittent straight catheterization apparently is not an option as long as he is at home under the care of his significant other. This living situation is what he absolutely prefers at this time while his significant other is able to care for him with the help of the visiting physician, home care nurse, and home health aide who helps with his baths. Is otherwise is able to flush the catheter but is not able to change them, she leaves this for the home care nurse. He was feeling quite weak did not take his temperature. 09/10/2017 the patient relates that he is feeling somewhat better today. With the new catheter he is having no further difficulties with obstruction and overflow. The patient however is very weak and has been a difficulty sense his right leg fracture. He has been receiving therapy to improve his strength but became quite debilitated after the right leg fracture and has not regained his prior functional status when he was up with a walker. The patient's significant other is present today and the patient himself has significant goal to try to become more independent again. He is feeling better today without further fevers chills or rigors. Current James catheter is functioning well and he does not voice other new acute complaints. Objective - Vital Signs Vital signs: Vital Signs Temp 98.3 F 09/10/17 19:07 Pulse 80 09/10/17 19:09 Resp 16 09/10/17 19:07 BP 111/54 09/10/17 19:07 Pulse Ox 96 09/10/17 19:07 Intake & Output 09/10/17 09/10/17 09/11/17 06:59 18:59 06:59 Intake Total 490 1625 Output Total 2650 2400 1999 Balance -2159 Weight 108.862 kg Intake: Intake, IV Titration 250 1625 Amount Sodium Chloride 0.9% 1, 250 1425 000 ml @ 75 mls/hr IV . [id number] ONE Rx#:[id number] cefTAZidime 2 gm In 200 Sodium Chloride 0.9% 100 ml @ 100 mls/hr IVPB Q8HR [facility] Rx#:[id number] Oral 240 Output: Urine 2650 2400 1999 Uretheral (James) 2400 Other: Voiding Method Indwelling Catheter Indwelling Catheter Indwelling Catheter # Voids 1 # Bowel Movements 1 - Exam 72-year-old male with MS is quite uncomfortable at this time. With the assistance of a variable to reposition him and get him slightly more comfortable. He does relate that he has a high airflow air mattress at home. HEENT: Anicteric conjunctiva are pink and moist nasal mucosa grossly intact without significant lesions, there is no thrush. Neck: The neck is supple without significant lymphadenopathy or thyromegaly. Lungs: Good bilateral air entry without significant crackles or wheezing. There is no significant bronchial sounds. There is no egophony or dullness. Heart: Regular rate and rhythm with an audible S1-S2, no S3 no S4. There is no significant murmur click or rub, PMI was nondisplaced. Abdomen: Positive bowel sounds soft and nontender without palpable masses or organomegaly. There was no guarding or rebound. Extremities: There is some minimal muscular wasting to the upper extremities, lower extremities have muscular wasting, has modestly good usage of the right upper extremity he has weakness of the left arm. Neuro: Awake alert oriented to person place and time. He has flaccid lower extremities, mild hyperreflexia and fasciculations are noted when stimulated. He does have function the left arm but he has weakness, and has pain with range of motion to the shoulder area. Right arm has a bit more strength and he has no pain with range of motion to the right arm. James catheters in place at this time urine is clear and light yellow without evidence of blood or older - Labs CBC & Chem 7: 09/10/17 07:09 09/10/17 07:09 Labs: Abnormal Lab Results - Last 24 Hours (Table) 09/10/17 09/10/17 Range/Units 07:09 07:09 RBC 3.85 L (4.30-5.90) m/uL Hgb 12.1 L (13.0-17.5) gm/dL Hct 37.1 L (39.0-53.0) % Lymphocytes # 0.9 L (1.0-4.8) k/uL Chloride 110 H (98-107) mmol/L Carbon Dioxide 20 L (22-30) mmol/L Creatinine 0.53 L (0.66-1.25) mg/dL Microbiology - Last 24 Hours (Table) 09/09/17 05:02 Urine Culture - Final Urine,Catheterized Laboratory Results WBC 4.2 k/uL (3.8-10.6) 09/10/17 07:09 RBC 3.85 m/uL (4.30-5.90) L 09/10/17 07:09 Hgb 12.1 gm/dL (13.0-17.5) L 09/10/17 07:09 Hct 37.1 % (39.0-53.0) L 09/10/17 07:09 MCV 96.5 fL (80.0-100.0) 09/10/17 07:09 MCH 31.3 pg (25.0-35.0) 09/10/17 07:09 MCHC 32.5 g/dL (31.0-37.0) 09/10/17 07:09 RDW 13.5 % (11.5-15.5) 09/10/17 07:09 Plt Count 239 k/uL (150-450) 09/10/17 07:09 Neutrophils % 65 % 09/10/17 07:09 Lymphocytes % 20 % 09/10/17 07:09 Monocytes % 9 % 09/10/17 07:09 Eosinophils % 3 % 09/10/17 07:09 Basophils % 0 % 09/10/17 07:09 Neutrophils # 2.7 k/uL (1.3-7.7) 09/10/17 07:09 Lymphocytes # 0.9 k/uL (1.0-4.8) L 09/10/17 07:09 Monocytes # 0.4 k/uL (0-1.0) 09/10/17 07:09 Eosinophils # 0.1 k/uL (0-0.7) 09/10/17 07:09 Basophils # 0.0 k/uL (0-0.2) 09/10/17 07:09 PT 10.7 sec (9.0-12.0) 09/09/17 12:54 INR 1.1 (<1.2) 09/09/17 12:54 APTT 22.2 sec (22.0-30.0) 09/09/17 12:54 Sodium 138 mmol/L (137-145) 09/10/17 07:09 Potassium 4.9 mmol/L (3.5-5.1) 09/10/17 07:09 Chloride 110 mmol/L (98-107) H 09/10/17 07:09 Carbon Dioxide 20 mmol/L (22-30) L 09/10/17 07:09 Anion Gap 8 mmol/L 09/10/17 07:09 BUN 9 mg/dL (9-20) 09/10/17 07:09 Creatinine 0.53 mg/dL (0.66-1.25) L 09/10/17 07:09 Est GFR (CKD-EPI)AfAm >90 (>60 ml/min/1.73 sqM) 09/10/17 07:09 Est GFR (CKD-EPI)NonAf >90 (>60 ml/min/1.73 sqM) 09/10/17 07:09 Glucose 93 mg/dL (74-99) 09/10/17 07:09 POC Glucose (mg/dL) 106 mg/dL (75-99) H 09/09/17 11:48 POC Glu Supervisor Gluing ID Traci Brooks 09/09/17 11:48 Calcium 9.2 mg/dL (8.4-10.2) 09/10/17 07:09 Urine Color Yellow 09/09/17 05:02 Urine Appearance Cloudy (Clear) 09/09/17 05:02 Urine pH 6.5 (5.0-8.0) 09/09/17 05:02 Ur Specific [place] 1.009 (1.001-1.035) 09/09/17 05:02 Urine Protein Trace (Negative) H 09/09/17 05:02 Urine Glucose (UA) Negative (Negative) 09/09/17 05:02 Urine Ketones Negative (Negative) 09/09/17 05:02 Urine Blood Moderate (Negative) H 09/09/17 05:02 Urine Nitrite Positive (Negative) 09/09/17 05:02 Urine Bilirubin Negative (Negative) 09/09/17 05:02 Urine Urobilinogen <2.0 mg/dL (<2.0) 09/09/17 05:02 Ur Leukocyte Esterase Large (Negative) H 09/09/17 05:02 Urine RBC 13 /hpf (0-5) H 09/09/17 05:02 Urine WBC >182 /hpf (0-5) H 09/09/17 05:02 Urine WBC Clumps Many /hpf (None) H 09/09/17 05:02 Amorphous Sediment Occasional /hpf (None) H 09/09/17 05:02 Urine Bacteria Rare /hpf (None) H 09/09/17 05:02 Urine Mucus Rare /hpf (None) H 09/09/17 05:02 Microbiology 09/09/17 05:02 Urine,Catheterized Urine Culture - Final Assessment and Plan (1) Urinary retention Current Visit: Yes Status: Acute Code(s): R33.9 - RETENTION OF URINE, UNSPECIFIED SNOMED Code(s): 128684420 (2) UTI (urinary tract infection) Narrative/Plan: 72-year-old male presents the emergency center via EMS because of difficulties with his urinary catheter, is not able to improve the leakage and the patient was becoming more weak. As noted the patient does have progressive multiple sclerosis and as of late has been having some difficulties with his disease and they're trying to see has MS specialist in the next month or so. During the last several weeks he has had difficulties with his urinary system and that there is been cloudy foul-smelling urine and there is been difficulties with the urinary catheter. As noted intermittent straight catheterization apparently is not an option for him while he is in the home setting which is a preferred place at this time since his is able to care for him with the assistance of visiting physician, visiting nurse and lpn home health. The patient apparently has had an outpatient culture as of late that showed pseudomonas aeruginosa likely not treatable with oral medications. With this information antibiotic therapy with ceftazidime has been started. Fortunately the patient does not have significant sepsis but current flare of his MS could be in the basis of underlying infection, and with his general immunocompromise and inability to feel his urinary system it is unclear if he is having other urinary symptoms at this time. Urinary catheter has been changed. Antibiotic therapy has been started at this time planning at least a short course of therapy until there is a bit more data. Urological consultation is noted and bladder flushes are being suggested once there is no evidence of active infection. 09/10/2017 this 72-year-old gentleman who has MS is feeling better since coming to hospital. The current urinary catheter is functioning well. Urology suggestion of catheter flushes will hopefully prevent rapid obstruction of the urinary catheter. The patient however is certainly not at his prior baseline status before the right leg fracture. The patient and his significant other relate that he is getting some therapy but is not progressing very well. Goal is to try to have him back to a more functional status, before his right leg fracture he was actually up with the walker. It is similar to have Dr. Champagne evaluated for the possibility of rehabilitation at the inpatient facility. If this is not an option they're willing to go to [facility] or similar facility to receive an aggressive course of rehab to get him more functional. We are waiting the outside urine culture to ensure that the current ceftazidime as the adequate choice but by his current rapid recovery is likely an excellent choice. If possible like to complete a course of this antibiotic therapy. We'll work with the discharge planners as far as options. Current Visit: Yes Status: Acute Code(s): N39.0 - URINARY TRACT INFECTION, SITE NOT SPECIFIED SNOMED Code(s): 90797248 (3) Multiple sclerosis, primary progressive Current Visit: Yes Status: Acute Code(s): G35 - MULTIPLE SCLEROSIS SNOMED Code(s): 413638255
[2017-09-11] MEDS: ACETAMINOPHEN TAB 325 MG TAB PO PRN ×2 (00:05→08:03)
[2017-09-11 07:34] LABS: Basophils % (A) 1 %; Eosinophils # (A) 0.1 k/uL (0-0.7); Eosinophils % (A) 3 %; HCT 37.7 % (39.0-53.0); HGB 11.9 gm/dL (13.0-17.5); Lymphocytes # (A) 0.9 k/uL (1.0-4.8); Lymphocytes % (A) 21 %; MCH 30.5 pg (25.0-35.0); MCHC 31.6 g/dL (31.0-37.0); MCV 96.5 fL (80.0-100.0); Mean Platelet Volume 6.6; Monocytes # (A) 0.4 k/uL (0-1.0); Monocytes % (A) 8 %; Neutrophils # (A) 2.8 k/uL (1.3-7.7); Neutrophils % (A) 65 %; Platelet Count 261 k/uL (150-450); RBC 3.91 m/uL (4.30-5.90); RDW 13.6 % (11.5-15.5); WBC 4.3 k/uL (3.8-10.6)
[2017-09-11 07:55] LABS: Anion Gap 6 mmol/L; Blood Urea Nitrogen 7 mg/dL (9-20); Calcium 9.2 mg/dL (8.4-10.2); Carbon Dioxide 25 mmol/L (22-30); Chloride 107 mmol/L (98-107); Glucose 90 mg/dL (74-99); Potassium 4.4 mmol/L (3.5-5.1); Sodium 138 mmol/L (137-145)
[2017-09-11] MEDS: LACOSAMIDE 50 MG TABLET PO SCH ×3 (08:02→21:25)
[2017-09-11] MEDS: FAMOTIDINE 20 MG TAB PO SCH ×2 (08:02→21:25)
[2017-09-11] MEDS: LISINOPRIL 10 MG TAB PO SCH (08:03)
[2017-09-11] MEDS: lamoTRIgine 100 MG TAB PO SCH ×2 (08:03→21:25)
[2017-09-11] MEDS: FUROSEMIDE 40 MG TAB PO SCH (08:03)
[2017-09-11] MEDS: TAMSULOSIN 0.4 MG CAP.ER.24H PO SCH (08:03)
[2017-09-11] MEDS: POLYETHYLENE GLYCOL 3350 17 GM POWD.PACK PO SCH ×2 (08:04→21:25)
[2017-09-11] MEDS: HEPARIN SODIUM,PORCINE 5,000 UNIT/ML 1 ML VIAL SQ SCH ×2 (08:07→21:25)
--- NOTE | 2017-09-11 09:17 | P.CONS ---
History of Present Illness - Chief Complaint Gait disturbance - History of Present Illness I had the opportunity see patient for inpatient rehab consultation with regard to gait disturbance. He was admitted to [facility] September 09 with UTI and occluded indwelling catheter. Seen by Dr. Lechuga for same. Patient reports five-year history of MS and generally bedbound. As a comes in twice a week to do a bed bath. Requires Vilma lift to transfer and a wheelchair and then wheelchair must be pushed. Previous functional history as elicited from patient: 72-year-old left-handed white male who is lives in one floor home with girlfriend. Girlfriend does cooking, laundry, driving and is the bolus. Patient retired. Again he is bedbound, see above. Review of Systems Review of systems: ENT: Denies sneezes or discharge. Eyes: Denies discharge or photophobia. Cardiac: Denies chest pain or palpitation. Pulmonary: Denies cough or shortness of breath. Gastrointestinal: Denies nausea, emesis, constipation, diarrhea. Genitourinary: Neurogenic bladder requiring IDC. Musculoskeletal: Denies muscle or bone aches. Neurologic: Gen. weakness especially lowers. Endocrine: Denies shakes or sweats. Oncology: Denies cancers. Dermatologic: Denies rash, itching, pruritus. ALLERGY/immunology: Denies sneezes, rashes. Past Medical History Additional Past Medical History / Comment(s): multiple sclerosis. UTI. History of Any Multi-Drug Resistant Organisms: None Reported Past Surgical History: Cholecystectomy, Tonsillectomy Additional Past Surgical History / Comment(s): right leg ORIF. Past Psychological History: No Psychological Hx Reported Additional Psychological History / Comment(s): lives with family home with his . 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 No experience. No international travel. No animals in the home. 3 adult children, the daughter occasionally does come and help. Did smoke as a younger man but it's been many years, denies significant alcohol or recreational drug use Smoking Status: Former smoker Past Alcohol Use History: None Reported Past Drug Use History: None Reported - Past Family History Father Family Medical History: Cancer Additional Family Medical History / Comment(s): from colon CA Medications and Allergies Home Medications Medication Instructions Recorded Confirmed Type Aspirin EC [Ecotrin Low Dose] 81 mg PO DAILY 09/09/17 09/09/17 History Cholecalciferol [Vitamin D3] 1,000 unit PO BID 09/09/17 09/09/17 History Cyanocobalamin [Vitamin B-12 1,000 mcg SQ QMONTH 09/09/17 09/09/17 History Injection] Desenex Topical 1 applic TOPICAL BID PRN 09/09/17 09/09/17 History Dimethyl Fumarate [Tecfidera] 240 mg PO BID 09/09/17 09/09/17 History Furosemide [Lasix] 40 mg PO DAILY 09/09/17 09/09/17 History Lacosamide [Vimpat] 75 mg PO TID 09/09/17 09/09/17 History Lisinopril [Zestril] 10 mg PO DAILY 09/09/17 09/09/17 History Menthol/Zinc Oxide [Calmoseptine 1 applic TOPICAL BID 09/09/17 09/09/17 History Ointment] Polyethylene Glycol 3350 [Miralax] 17 gm PO BID 09/09/17 09/09/17 History Ranitidine HCl [Zantac] 150 mg PO BID 09/09/17 09/09/17 History Tamsulosin HCl [Flomax] 0.4 mg PO DAILY 09/09/17 09/09/17 History fentaNYL 50MCG/HR PATCH [Duragesic 50 mcg TRANSDERM Q72H 09/09/17 09/09/17 History 50MCG/HR] lamoTRIgine [LaMICtal] 200 mg PO BID 09/09/17 09/09/17 History Allergies Allergy/AdvReac Type Severity Reaction Status Date / Time latex Allergy Rash/Hives Verified 09/09/17 09:52 Penicillins Allergy Rash/Hives Verified 09/09/17 09:52 tetanus immune globulin Allergy Rash/Hives Verified 09/09/17 09:52 Physical Exam Vitals: Vital Signs Temp Pulse Resp BP Pulse Ox 09/11/17 00:10 97.6 F 67 16 103/66 96 09/10/17 19:09 80 09/10/17 19:07 98.3 F 80 16 111/54 96 09/10/17 15:28 98.1 F 99 16 126/86 94 L Intake and Output 09/10/17 09/11/17 09/11/17 22:59 06:59 14:59 Intake Total 420 100 Output Total 1999 1999 Balance -1580 -1900 Intake: Intake, IV Titration 100 Amount cefTAZidime 2 gm In 100 Sodium Chloride 0.9% 100 ml @ 100 mls/hr IVPB Q8HR [facility] Rx#:[id number] Oral 420 Output: Urine 1999 1999 Other: Voiding Method Indwelling Catheter Indwelling Catheter # Voids 1 # Bowel Movements 1 Weight 108.862 kg Skin: Good color, texture, turgor. General: Obese build and comfortable appearance. Head: Normocephalic, atraumatic. Eyes: Symmetric. Pupils equal round. Ears: Symmetric. Hearing within normal limits. Mouth: Clear. Neck: Supple. Carotid without bruit. Cardiac: Regular rate and rhythm. Lungs: Clear anteriorly and posteriorly. Abdomen: Soft active nontender, obese. Extremities: Normal tone. Neurological: Mental status: Alert, cooperative, pleasant. Cranial nerves: Symmetric facial tone and trapezius. Motor: Active movement in hands and ankles. Able to elevate arms off bed but not legs. Sensation: Intact throughout. DTRs: Symmetric and equal throughout. Mobility: Did not attempt as patient would require total assistance for bed mobility. Results CBC & Chem 7: 09/11/17 06:53 09/11/17 06:53 Labs: Abnormal Lab Results - Last 24 Hours (Table) 09/11/17 09/11/17 Range/Units 06:53 06:53 RBC 3.91 L (4.30-5.90) m/uL Hgb 11.9 L (13.0-17.5) gm/dL Hct 37.7 L (39.0-53.0) % Lymphocytes # 0.9 L (1.0-4.8) k/uL BUN 7 L (9-20) mg/dL Creatinine 0.59 L (0.66-1.25) mg/dL Microbiology - Last 24 Hours (Table) 09/09/17 05:02 Urine Culture - Final Urine,Catheterized Assessment and Plan (1) Multiple sclerosis, primary progressive Current Visit: Yes Status: Acute Code(s): G35 - MULTIPLE SCLEROSIS SNOMED Code(s): 833456578 (2) UTI (urinary tract infection) Current Visit: Yes Status: Acute Code(s): N39.0 - URINARY TRACT INFECTION, SITE NOT SPECIFIED SNOMED Code(s): 65322072 (3) Urinary retention Current Visit: Yes Status: Acute Code(s): R33.9 - RETENTION OF URINE, UNSPECIFIED SNOMED Code(s): 381346480 Plan: Comments and plan: At this time prescribed PT and OT but rehab course guarded due to premorbid bed bound dependent.
[2017-09-11] MEDS ORDERED: CYANOCOBALAMIN 1,000 MCG/ML 1 ML VIAL IM SCH (10:15)
--- NOTE | 2017-09-11 12:19 | P.PN ---
Subjective This is a pleasant 72 years old female with past medical history of multiple sclerosis, status post cholecystectomy, who presents because of recurrent urinary tract infection for the last 5-6 years. Patient states he has history of MS with neurogenic bladder status post indwelling James catheter for the last 1 year. And he has frequent urinary tract infections he has one in July, and the last one was about 2 weeks ago. He has a visiting doctor once a month with treatment for that. And as per significant other at bedside patient had positive culture for Pseudomonas on 07/24/2017. Over the last 2-3 days the significant others was noticed that his urine is becoming foul-smelling. And the catheters was blocked with difficult to flush started decided to come to the emergency room and his James catheter was change. Urine analysis was suspicion for infection and he was admitted to the hospital for further treatment. Patient also feeling generally weak which is usually happens when he have UTI as per patient and significant other. Patient denies abdominal pain. No chest pain. No dyspnea. No change in bowel habits or fever. Patient at baseline is bed-bound due to his MS disease and History of leg fracture 09/11/2017 Patient still feels generally weak, possibly related to his urinary tract infections on the top of his multiple sclerosis. Patient doesn't have fever no leukocytosis. Patient still needs IV antibiotics. His first urine culture was nonconclusive, a secondary culture was sent last night. Rehab team evaluation is in the process. Patient states he has bedbound for about a year although he was trying to do outpatient physical therapy for short time Objective - Vital Signs Vital signs: Vital Signs Temp 97.8 F 09/11/17 07:45 Pulse 67 09/11/17 07:45 Resp 14 09/11/17 07:45 BP 152/78 09/11/17 07:45 Pulse Ox 97 09/11/17 07:45 Intake & Output 09/10/17 09/11/17 09/11/17 18:59 06:59 18:59 Intake Total 1625 520 100 Output Total 2400 4000 2800 Balance -440 -2510 -2700 Weight 108.862 kg Intake: Intake, IV Titration 1625 100 100 Amount Sodium Chloride 0.9% 1, 1425 000 ml @ 75 mls/hr IV . [id number] [facility] Rx#:[id number] cefTAZidime 2 gm In 200 100 100 Sodium Chloride 0.9% 100 ml @ 100 mls/hr IVPB Q8HR [facility] Rx#:[id number] Oral 420 Output: Urine 2400 4000 2800 Uretheral (James) 2400 Other: Voiding Method Indwelling Catheter Indwelling Catheter Indwelling Catheter # Voids 1 # Bowel Movements 1 - Exam GENERAL: The patient is alert and oriented x3, not in any acute distress. Well developed, well nourished. HEENT: Pupils are round and equally reacting to light. EOMI. No scleral icterus. No conjunctival pallor. Normocephalic, atraumatic. No pharyngeal erythema. No thyromegaly. CARDIOVASCULAR: S1 and S2 present. No murmurs, rubs, or gallops. PULMONARY: Chest is clear to auscultation, no wheezing or crackles. ABDOMEN: Soft, nontender, nondistended, normoactive bowel sounds. No palpable organomegaly. genitourinary system: James catheter in a Place, working. With no surrounding leakage. Genitourinary examination was unremarkable MUSCULOSKELETAL: No joint swelling or deformity. EXTREMITIES: No cyanosis, clubbing, or pedal edema. -NEUROLOGICAL: Gross neurological examination did not reveal any focal deficits. Bilateral paraplasia. ( Patient is bedbound for 1 year) SKIN: No rashes. - Labs CBC & Chem 7: 09/11/17 06:53 09/11/17 06:53 Labs: Abnormal Lab Results - Last 24 Hours (Table) 09/11/17 09/11/17 Range/Units 06:53 06:53 RBC 3.91 L (4.30-5.90) m/uL Hgb 11.9 L (13.0-17.5) gm/dL Hct 37.7 L (39.0-53.0) % Lymphocytes # 0.9 L (1.0-4.8) k/uL BUN 7 L (9-20) mg/dL Creatinine 0.59 L (0.66-1.25) mg/dL Microbiology - Last 24 Hours (Table) 09/09/17 05:02 Urine Culture - Final Urine,Catheterized Assessment and Plan Plan: -Recurrent Urinary tract infection, failed outpatient treatment. Repeat UC: Pending. Infectious disease consult is appreciated, patient was started on ceftazidime in view of his history of pure positive culture for Pseudomonas last month. Urological evaluation is appreciated too, he has long discussion with the patient, please refer to his note, the patient desires to keep the indwelling James catheter with prescription for Renacidin to reduce the problem of catheter obstruction -Generalized weakness, mostly related to the above, his infection might worsen his MS disease. Rehab evaluation is appreciated and it is on process, patient has Medicare coverage, but is not sure if he is a candidate for inpatient physical rehab -Multiple sclerosis, continue same treatment, may contribute to a general weakness -Neurogenic bladder, secondary to above DVT prophylaxis subcutaneous heparin GI prophylaxis Pepcid Prognosis is guarded
[2017-09-11] MEDS: CHOLECALCIFEROL 1,000 UNIT TAB PO SCH (21:25)
[2017-09-12] MEDS: ACETAMINOPHEN TAB 325 MG TAB PO PRN (06:23)
[2017-09-12 07:16] LABS: Basophils % (A) 1 %; Eosinophils # (A) 0.2 k/uL (0-0.7); Eosinophils % (A) 4 %; HCT 35.6 % (39.0-53.0); HGB 11.7 gm/dL (13.0-17.5); Lymphocytes % (A) 18 %; MCH 31.7 pg (25.0-35.0); MCHC 32.9 g/dL (31.0-37.0); MCV 96.5 fL (80.0-100.0); Mean Platelet Volume 6.3; Monocytes # (A) 0.4 k/uL (0-1.0); Monocytes % (A) 8 %; Neutrophils # (A) 3.6 k/uL (1.3-7.7); Neutrophils % (A) 67 %; Platelet Count 244 k/uL (150-450); RBC 3.69 m/uL (4.30-5.90); RDW 13.8 % (11.5-15.5); WBC 5.4 k/uL (3.8-10.6)
[2017-09-12 07:45] LABS: Anion Gap 8 mmol/L; Blood Urea Nitrogen 8 mg/dL (9-20); Calcium 9.4 mg/dL (8.4-10.2); Carbon Dioxide 26 mmol/L (22-30); Chloride 105 mmol/L (98-107); Glucose 90 mg/dL (74-99); Potassium 4.6 mmol/L (3.5-5.1); Sodium 139 mmol/L (137-145)
[2017-09-12] MEDS: CHOLECALCIFEROL 1,000 UNIT TAB PO SCH ×2 (10:06→20:16)
[2017-09-12] MEDS: ASPIRIN 81 MG PO SCH (10:06)
[2017-09-12] MEDS: FUROSEMIDE 40 MG TAB PO SCH (10:08)
[2017-09-12] MEDS: HEPARIN SODIUM,PORCINE 5,000 UNIT/ML 1 ML VIAL SQ SCH ×2 (10:08→20:16)
[2017-09-12] MEDS: FAMOTIDINE 20 MG TAB PO SCH ×2 (10:08→17:25)
[2017-09-12] MEDS: LISINOPRIL 10 MG TAB PO SCH (10:09)
[2017-09-12] MEDS: TAMSULOSIN 0.4 MG CAP.ER.24H PO SCH (10:09)
[2017-09-12] MEDS: lamoTRIgine 100 MG TAB PO SCH ×2 (10:09→20:16)
[2017-09-12] MEDS: POLYETHYLENE GLYCOL 3350 17 GM POWD.PACK PO SCH ×2 (10:13→20:16)
[2017-09-12] MEDS: LACOSAMIDE 50 MG TABLET PO SCH ×3 (11:23→20:15)
[2017-09-12 14:22] LABS: Appearance,Urine Clear (Clear); Bilirubin,Urine Negative (Negative); Blood,Urine Negative (Negative); Color,Urine Colorless; Glucose,Urine (UA) Negative (Negative); Ketones,Urine Negative (Negative); Leukocyte Esterase,Urine Negative (Negative); Nitrite,Urine Negative (Negative); PH, Urine 7.5 (5.0-8.0); Protein,Urine Negative (Negative); Specific Gravity,Urine 1.005 (1.001-1.035); Urobilinogen,Urine <2.0 mg/dL (<2.0)
--- NOTE | 2017-09-12 20:27 | P.PN ---
Subjective This is a pleasant 72 years old female with past medical history of multiple sclerosis, status post cholecystectomy, who presents because of recurrent urinary tract infection for the last 5-6 years. Patient states he has history of MS with neurogenic bladder status post indwelling James catheter for the last 1 year. And he has frequent urinary tract infections he has one in July, and the last one was about 2 weeks ago. He has a visiting doctor once a month with treatment for that. And as per significant other at bedside patient had positive culture for Pseudomonas on 07/24/2017. Over the last 2-3 days the significant others was noticed that his urine is becoming foul-smelling. And the catheters was blocked with difficult to flush started decided to come to the emergency room and his James catheter was change. Urine analysis was suspicion for infection and he was admitted to the hospital for further treatment. Patient also feeling generally weak which is usually happens when he have UTI as per patient and significant other. Patient denies abdominal pain. No chest pain. No dyspnea. No change in bowel habits or fever. Patient at baseline is bed-bound due to his MS disease and History of leg fracture 09/11/2017 Patient still feels generally weak, possibly related to his urinary tract infections on the top of his multiple sclerosis. Patient doesn't have fever no leukocytosis. Patient still needs IV antibiotics. His first urine culture was nonconclusive, a secondary culture was sent last night. Rehab team evaluation is in the process. Patient states he has bedbound for about a year although he was trying to do outpatient physical therapy for short time 09/12/2017 pt states he is still weak, however he is improving , pt/ot evaluated pt for possible rehab, pt could stand at bed side and per pt and they are interested in rehab. UC: negative so far , pt is still on abx. Objective - Vital Signs Vital signs: Vital Signs Temp 98.6 F 09/12/17 15:00 Pulse 91 09/12/17 15:00 Resp 16 09/12/17 15:30 BP 111/71 09/12/17 15:00 Pulse Ox 94 L 09/12/17 15:00 Intake & Output 09/12/17 09/12/17 09/13/17 06:59 18:59 06:59 Intake Total 600 980 240 Output Total 4500 3800 Balance -3900 -2820 240 Intake: Oral 600 980 240 Output: Urine 4500 3800 Uretheral (James) 3800 Other: Voiding Method Indwelling Catheter Indwelling Catheter - Exam GENERAL: The patient is alert and oriented x3, not in any acute distress. Well developed, well nourished. HEENT: Pupils are round and equally reacting to light. EOMI. No scleral icterus. No conjunctival pallor. Normocephalic, atraumatic. No pharyngeal erythema. No thyromegaly. CARDIOVASCULAR: S1 and S2 present. No murmurs, rubs, or gallops. PULMONARY: Chest is clear to auscultation, no wheezing or crackles. ABDOMEN: Soft, nontender, nondistended, normoactive bowel sounds. No palpable organomegaly. genitourinary system: James catheter in a Place, working. With no surrounding leakage. Genitourinary examination was unremarkable MUSCULOSKELETAL: No joint swelling or deformity. EXTREMITIES: No cyanosis, clubbing, or pedal edema. -NEUROLOGICAL: Gross neurological examination did not reveal any focal deficits. Bilateral paraplasia. ( Patient is bedbound for 1 year) SKIN: No rashes. - Labs CBC & Chem 7: 09/12/17 06:25 09/12/17 06:25 Labs: Abnormal Lab Results - Last 24 Hours (Table) 09/12/17 09/12/17 Range/Units 06:25 06:25 RBC 3.69 L (4.30-5.90) m/uL Hgb 11.7 L (13.0-17.5) gm/dL Hct 35.6 L (39.0-53.0) % BUN 8 L (9-20) mg/dL Creatinine 0.59 L (0.66-1.25) mg/dL Microbiology - Last 24 Hours (Table) 09/11/17 20:00 Urine Culture - Preliminary Urine,Catheterized Assessment and Plan Plan: -Recurrent Urinary tract infection, failed outpatient treatment. Repeat UC: Pending. Infectious disease consult is appreciated, patient was started on ceftazidime in view of his history of pure positive culture for Pseudomonas last month. Urological evaluation is appreciated too, he has long discussion with the patient, please refer to his note, the patient desires to keep the indwelling James catheter with prescription for Renacidin to reduce the problem of catheter obstruction -Generalized weakness, mostly related to the above, his infection might worsen his MS disease. Rehab evaluation is appreciated and it is on process, patient has Medicare coverage, but is not sure if he is a candidate for inpatient physical rehab -Multiple sclerosis, continue same treatment, may contribute to a general weakness -Neurogenic bladder, secondary to above DVT prophylaxis subcutaneous heparin GI prophylaxis Pepcid Prognosis is guarded
[2017-09-13] MEDS: ACETAMINOPHEN TAB 325 MG TAB PO PRN (02:19)
[2017-09-13] MEDS: LISINOPRIL 10 MG TAB PO SCH (07:08)
[2017-09-13] MEDS: FAMOTIDINE 20 MG TAB PO SCH ×2 (07:08→22:18)
--- NOTE | 2017-09-13 09:34 | P.PN ---
Subjective This is a pleasant 72 years old female with past medical history of multiple sclerosis, status post cholecystectomy, who presents because of recurrent urinary tract infection for the last 5-6 years. Patient states he has history of MS with neurogenic bladder status post indwelling James catheter for the last 1 year. And he has frequent urinary tract infections he has one in July, and the last one was about 2 weeks ago. He has a visiting doctor once a month with treatment for that. And as per significant other at bedside patient had positive culture for Pseudomonas on 07/24/2017. Over the last 2-3 days the significant others was noticed that his urine is becoming foul-smelling. And the catheters was blocked with difficult to flush started decided to come to the emergency room and his James catheter was change. Urine analysis was suspicion for infection and he was admitted to the hospital for further treatment. Patient also feeling generally weak which is usually happens when he have UTI as per patient and significant other. Patient denies abdominal pain. No chest pain. No dyspnea. No change in bowel habits or fever. Patient at baseline is bed-bound due to his MS disease and History of leg fracture 09/11/2017 Patient still feels generally weak, possibly related to his urinary tract infections on the top of his multiple sclerosis. Patient doesn't have fever no leukocytosis. Patient still needs IV antibiotics. His first urine culture was nonconclusive, a secondary culture was sent last night. Rehab team evaluation is in the process. Patient states he has bedbound for about a year although he was trying to do outpatient physical therapy for short time 09/12/2017 pt states he is still weak, however he is improving , pt/ot evaluated pt for possible rehab, pt could stand at bed side and per pt and they are interested in rehab. UC: negative so far , pt is still on abx. 09/06/1717 Patient lying in bed still feeling little bit weak, but says is improving. No urinary signs and symptoms. No abdominal pain. No chest pain or dyspnea. No change in urine or bowel habits. No fever. Second urine culture: Shows no growth after 18 hours, patient is still on IV antibiotics. Patient is more interested in doing rehab as patient was in bed for about a year due to his multiple multiple sclerosis and deconditioning, social media marketing specialist/ oil field caser on the case for possible inpatient physical rehab Objective - Vital Signs Vital signs: Vital Signs Temp 97.1 F L 09/13/17 07:07 Pulse 63 09/13/17 07:07 Resp 16 09/13/17 07:07 BP 126/73 09/13/17 07:07 Pulse Ox 97 09/13/17 07:07 Intake & Output 09/12/17 09/13/17 09/13/17 18:59 06:59 18:59 Intake Total 980 1360 240 Output Total 3800 1950 Balance -2820 -590 240 Intake: Oral 980 1360 240 Output: Urine 3800 1950 Uretheral (James) 3800 Other: Voiding Method Indwelling Catheter Indwelling Catheter Indwelling Catheter - Exam GENERAL: The patient is alert and oriented x3, not in any acute distress. Well developed, well nourished. HEENT: Pupils are round and equally reacting to light. EOMI. No scleral icterus. No conjunctival pallor. Normocephalic, atraumatic. No pharyngeal erythema. No thyromegaly. CARDIOVASCULAR: S1 and S2 present. No murmurs, rubs, or gallops. PULMONARY: Chest is clear to auscultation, no wheezing or crackles. ABDOMEN: Soft, nontender, nondistended, normoactive bowel sounds. No palpable organomegaly. genitourinary system: James catheter in a Place, working. With no surrounding leakage. Genitourinary examination was unremarkable MUSCULOSKELETAL: No joint swelling or deformity. EXTREMITIES: No cyanosis, clubbing, or pedal edema. -NEUROLOGICAL: Gross neurological examination did not reveal any focal deficits. Bilateral paraplasia. ( Patient is bedbound for 1 year) SKIN: No rashes. - Labs CBC & Chem 7: 09/12/17 06:25 09/12/17 06:25 Labs: Microbiology - Last 24 Hours (Table) 09/11/17 20:00 Urine Culture - Final Urine,Catheterized Assessment and Plan Plan: -Recurrent Urinary tract infection, failed outpatient treatment. Repeat UC: No growth and 18 hours. Infectious disease consult is appreciated, patient was started on ceftazidime in view of his history of pure positive culture for Pseudomonas last month. Urological evaluation is appreciated too, he has long discussion with the patient, please refer to his note, the patient desires to keep the indwelling James catheter with prescription for Renacidin to reduce the problem of catheter obstruction -Generalized weakness, mostly related to the above, his infection might worsen his MS disease. Rehab evaluation is appreciated and it is on process, patient has Medicare coverage, but is not sure if he is a candidate for inpatient physical rehab -Multiple sclerosis, continue same treatment, may contribute to a general weakness -Neurogenic bladder, secondary to above DVT prophylaxis subcutaneous heparin GI prophylaxis Pepcid Prognosis is guarded
[2017-09-13] MEDS: POLYETHYLENE GLYCOL 3350 17 GM POWD.PACK PO SCH ×2 (09:51→22:17)
[2017-09-13] MEDS: CHOLECALCIFEROL 1,000 UNIT TAB PO SCH ×2 (09:51→22:18)
[2017-09-13] MEDS: lamoTRIgine 100 MG TAB PO SCH ×2 (09:52→22:19)
[2017-09-13] MEDS: TAMSULOSIN 0.4 MG CAP.ER.24H PO SCH (09:52)
[2017-09-13] MEDS: HEPARIN SODIUM,PORCINE 5,000 UNIT/ML 1 ML VIAL SQ SCH ×2 (09:53→22:18)
[2017-09-13] MEDS: FUROSEMIDE 40 MG TAB PO SCH (09:53)
[2017-09-13] MEDS: ASPIRIN 81 MG PO SCH (09:53)
[2017-09-13] MEDS: LACOSAMIDE 50 MG TABLET PO SCH ×3 (09:57→22:19)
[2017-09-14] MEDS: LISINOPRIL 10 MG TAB PO SCH (07:40)
[2017-09-14] MEDS: FAMOTIDINE 20 MG TAB PO SCH ×2 (07:40→16:23)
[2017-09-14] MEDS: CHOLECALCIFEROL 1,000 UNIT TAB PO SCH ×2 (08:29→21:31)
[2017-09-14] MEDS: ASPIRIN 81 MG PO SCH (08:29)
[2017-09-14] MEDS: TAMSULOSIN 0.4 MG CAP.ER.24H PO SCH (08:29)
[2017-09-14] MEDS: FUROSEMIDE 40 MG TAB PO SCH (08:29)
[2017-09-14] MEDS: lamoTRIgine 100 MG TAB PO SCH ×2 (08:29→21:32)
[2017-09-14] MEDS: HEPARIN SODIUM,PORCINE 5,000 UNIT/ML 1 ML VIAL SQ SCH ×2 (08:30→21:32)
[2017-09-14] MEDS: LACOSAMIDE 50 MG TABLET PO SCH ×3 (08:30→21:32)
[2017-09-14] MEDS: POLYETHYLENE GLYCOL 3350 17 GM POWD.PACK PO SCH ×2 (08:30→21:31)
--- NOTE | 2017-09-14 22:22 | P.PN ---
Subjective This is a pleasant 72 years old female with past medical history of multiple sclerosis, status post cholecystectomy, who presents because of recurrent urinary tract infection for the last 5-6 years. Patient states he has history of MS with neurogenic bladder status post indwelling James catheter for the last 1 year. And he has frequent urinary tract infections he has one in July, and the last one was about 2 weeks ago. He has a visiting doctor once a month with treatment for that. And as per significant other at bedside patient had positive culture for Pseudomonas on 07/24/2017. Over the last 2-3 days the significant others was noticed that his urine is becoming foul-smelling. And the catheters was blocked with difficult to flush started decided to come to the emergency room and his James catheter was change. Urine analysis was suspicion for infection and he was admitted to the hospital for further treatment. Patient also feeling generally weak which is usually happens when he have UTI as per patient and significant other. Patient denies abdominal pain. No chest pain. No dyspnea. No change in bowel habits or fever. Patient at baseline is bed-bound due to his MS disease and History of leg fracture 09/11/2017 Patient still feels generally weak, possibly related to his urinary tract infections on the top of his multiple sclerosis. Patient doesn't have fever no leukocytosis. Patient still needs IV antibiotics. His first urine culture was nonconclusive, a secondary culture was sent last night. Rehab team evaluation is in the process. Patient states he has bedbound for about a year although he was trying to do outpatient physical therapy for short time 09/12/2017 pt states he is still weak, however he is improving , pt/ot evaluated pt for possible rehab, pt could stand at bed side and per pt and they are interested in rehab. UC: negative so far , pt is still on abx. 09/13/1717 Patient lying in bed still feeling little bit weak, but says is improving. No urinary signs and symptoms. No abdominal pain. No chest pain or dyspnea. No change in urine or bowel habits. No fever. Second urine culture: Shows no growth after 18 hours, patient is still on IV antibiotics. Patient is more interested in doing rehab as patient was in bed for about a year due to his multiple multiple sclerosis and deconditioning, nursing home social worker/ pillowcase sewer on the case for possible inpatient physical rehab 09/14/2017 no significant change today Patient lying in bed still feeling little bit weak, but says is improving. No urinary signs and symptoms. No abdominal pain. No chest pain or dyspnea. No change in urine or bowel habits. No fever. Second urine culture: Shows no growth after 18 hours, patient is still on IV antibiotics. Patient is more interested in doing rehab as patient was in bed for about a year due to his multiple multiple sclerosis and deconditioning, nursing home social worker/ pillowcase sewer on the case for possible inpatient physical rehab Objective - Vital Signs Vital signs: Vital Signs Temp 97.4 F L 09/14/17 19:00 Pulse 94 09/14/17 19:00 Resp 16 09/14/17 19:00 BP 105/66 09/14/17 19:00 Pulse Ox 95 09/14/17 19:00 Intake & Output 09/14/17 09/14/17 09/15/17 06:59 18:59 06:59 Intake Total 1300 540 Output Total 2100 1500 Balance -800 -960 Intake: Intake, IV Titration 100 Amount cefTAZidime 2 gm In 100 Sodium Chloride 0.9% 100 ml @ 100 mls/hr IVPB Q8HR [facility] Rx#:[id number] Oral 1200 540 Output: Urine 2100 1500 Uretheral (James) 1500 Other: Voiding Method Indwelling Catheter Indwelling Catheter # Bowel Movements 1 - Exam GENERAL: The patient is alert and oriented x3, not in any acute distress. Well developed, well nourished. HEENT: Pupils are round and equally reacting to light. EOMI. No scleral icterus. No conjunctival pallor. Normocephalic, atraumatic. No pharyngeal erythema. No thyromegaly. CARDIOVASCULAR: S1 and S2 present. No murmurs, rubs, or gallops. PULMONARY: Chest is clear to auscultation, no wheezing or crackles. ABDOMEN: Soft, nontender, nondistended, normoactive bowel sounds. No palpable organomegaly. genitourinary system: James catheter in a Place, working. With no surrounding leakage. Genitourinary examination was unremarkable MUSCULOSKELETAL: No joint swelling or deformity. EXTREMITIES: No cyanosis, clubbing, or pedal edema. -NEUROLOGICAL: Gross neurological examination did not reveal any focal deficits. Bilateral paraplasia. ( Patient is bedbound for 1 year) SKIN: No rashes. - Labs CBC & Chem 7: 09/12/17 06:25 09/12/17 06:25 Assessment and Plan Plan: -Recurrent Urinary tract infection, failed outpatient treatment. Repeat UC: No growth and 18 hours. Infectious disease consult is appreciated, patient was started on ceftazidime in view of his history of pure positive culture for Pseudomonas last month. Urological evaluation is appreciated too, he has long discussion with the patient, please refer to his note, the patient desires to keep the indwelling James catheter with prescription for Renacidin to reduce the problem of catheter obstruction -Generalized weakness, mostly related to the above, his infection might worsen his MS disease. Rehab evaluation is appreciated and it is on process, patient has Medicare coverage, but is not sure if he is a candidate for inpatient physical rehab -Multiple sclerosis, continue same treatment, may contribute to a general weakness -Neurogenic bladder, secondary to above DVT prophylaxis subcutaneous heparin GI prophylaxis Pepcid Prognosis is guarded
[2017-09-15] MEDS: lamoTRIgine 100 MG TAB PO SCH ×2 (08:47→21:35)
[2017-09-15] MEDS: FAMOTIDINE 20 MG TAB PO SCH ×2 (08:48→17:42)
[2017-09-15] MEDS: FUROSEMIDE 40 MG TAB PO SCH (08:48)
[2017-09-15] MEDS: ASPIRIN 81 MG PO SCH (08:48)
[2017-09-15] MEDS: LISINOPRIL 10 MG TAB PO SCH (08:48)
[2017-09-15] MEDS: TAMSULOSIN 0.4 MG CAP.ER.24H PO SCH (08:48)
[2017-09-15] MEDS: HEPARIN SODIUM,PORCINE 5,000 UNIT/ML 1 ML VIAL SQ SCH ×2 (08:49→21:35)
[2017-09-15] MEDS: CHOLECALCIFEROL 1,000 UNIT TAB PO SCH ×2 (08:49→21:35)
[2017-09-15] MEDS: POLYETHYLENE GLYCOL 3350 17 GM POWD.PACK PO SCH ×2 (08:52→21:36)
[2017-09-15] MEDS: LACOSAMIDE 50 MG TABLET PO SCH ×3 (09:40→21:36)
[2017-09-15 14:20] VITALS: RESP 16
--- NOTE | 2017-09-16 02:52 | P.PN ---
Subjective This is a pleasant 72 years old female with past medical history of multiple sclerosis, status post cholecystectomy, who presents because of recurrent urinary tract infection for the last 5-6 years. Patient states he has history of MS with neurogenic bladder status post indwelling James catheter for the last 1 year. And he has frequent urinary tract infections he has one in July, and the last one was about 2 weeks ago. He has a visiting doctor once a month with treatment for that. And as per significant other at bedside patient had positive culture for Pseudomonas on 07/24/2017. Over the last 2-3 days the significant others was noticed that his urine is becoming foul-smelling. And the catheters was blocked with difficult to flush started decided to come to the emergency room and his James catheter was change. Urine analysis was suspicion for infection and he was admitted to the hospital for further treatment. Patient also feeling generally weak which is usually happens when he have UTI as per patient and significant other. Patient denies abdominal pain. No chest pain. No dyspnea. No change in bowel habits or fever. Patient at baseline is bed-bound due to his MS disease and History of leg fracture 09/11/2017 Patient still feels generally weak, possibly related to his urinary tract infections on the top of his multiple sclerosis. Patient doesn't have fever no leukocytosis. Patient still needs IV antibiotics. His first urine culture was nonconclusive, a secondary culture was sent last night. Rehab team evaluation is in the process. Patient states he has bedbound for about a year although he was trying to do outpatient physical therapy for short time 09/12/2017 pt states he is still weak, however he is improving , pt/ot evaluated pt for possible rehab, pt could stand at bed side and per pt and they are interested in rehab. UC: negative so far , pt is still on abx. 09/13/1717 Patient lying in bed still feeling little bit weak, but says is improving. No urinary signs and symptoms. No abdominal pain. No chest pain or dyspnea. No change in urine or bowel habits. No fever. Second urine culture: Shows no growth after 18 hours, patient is still on IV antibiotics. Patient is more interested in doing rehab as patient was in bed for about a year due to his multiple multiple sclerosis and deconditioning, social insurance administrator/ returned case inspector on the case for possible inpatient physical rehab 09/14/2017 no significant change today Patient lying in bed still feeling little bit weak, but says is improving. No urinary signs and symptoms. No abdominal pain. No chest pain or dyspnea. No change in urine or bowel habits. No fever. Second urine culture: Shows no growth after 18 hours, patient is still on IV antibiotics. Patient is more interested in doing rehab as patient was in bed for about a year due to his multiple multiple sclerosis and deconditioning, social insurance administrator/ returned case inspector on the case for possible inpatient physical rehab 09/15/2017 pt is doing well , pt and at bed side state they are going to physical rehab tomorrow. however we will need clearance by infectious team as well as the plan of the antibiotic. Objective - Vital Signs Vital signs: Vital Signs Temp 97.6 F 09/16/17 00:31 Pulse 79 09/16/17 00:31 Resp 16 09/16/17 00:35 BP 115/65 09/16/17 00:31 Pulse Ox 90 L 09/16/17 00:31 Intake & Output 09/15/17 09/15/17 09/16/17 06:59 18:59 06:59 Intake Total 1740 650 Output Total 1300 1500 Balance 440 -1500 650 Weight 108.862 kg Intake: Intake, IV Titration 100 Amount cefTAZidime 2 gm In 100 Sodium Chloride 0.9% 100 ml @ 100 mls/hr IVPB Q8HR [facility] [place] Rx#:[id number] Oral 1640 650 Output: Urine 1300 1500 Other: Voiding Method Indwelling Catheter Indwelling Catheter # Voids 1 # Bowel Movements 1 1 - Exam GENERAL: The patient is alert and oriented x3, not in any acute distress. Well developed, well nourished. HEENT: Pupils are round and equally reacting to light. EOMI. No scleral icterus. No conjunctival pallor. Normocephalic, atraumatic. No pharyngeal erythema. No thyromegaly. CARDIOVASCULAR: S1 and S2 present. No murmurs, rubs, or gallops. PULMONARY: Chest is clear to auscultation, no wheezing or crackles. ABDOMEN: Soft, nontender, nondistended, normoactive bowel sounds. No palpable organomegaly. genitourinary system: James catheter in a Place, working. With no surrounding leakage. Genitourinary examination was unremarkable MUSCULOSKELETAL: No joint swelling or deformity. EXTREMITIES: No cyanosis, clubbing, or pedal edema. -NEUROLOGICAL: Gross neurological examination did not reveal any focal deficits. Bilateral paraplasia. ( Patient is bedbound for 1 year) SKIN: No rashes. - Labs CBC & Chem 7: 09/12/17 06:25 09/12/17 06:25 Assessment and Plan Plan: -Recurrent Urinary tract infection, failed outpatient treatment. Repeat UC: No growth and 18 hours. Infectious disease consult is appreciated, patient was started on ceftazidime in view of his history of pure positive culture for Pseudomonas last month. Urological evaluation is appreciated too, he has long discussion with the patient, please refer to his note, the patient desires to keep the indwelling James catheter with prescription for Renacidin to reduce the problem of catheter obstruction -Generalized weakness, mostly related to the above, his infection might worsen his MS disease. Rehab evaluation is appreciated and it is on process, patient has Medicare coverage, but is not sure if he is a candidate for inpatient physical rehab -Multiple sclerosis, continue same treatment, may contribute to a general weakness -Neurogenic bladder, secondary to above DVT prophylaxis subcutaneous heparin GI prophylaxis Pepcid Prognosis is guarded
[2017-09-16 07:40] VITALS: BP 115/71; PULSE 75; TEMP 98.5
[2017-09-16] MEDS: LISINOPRIL 10 MG TAB PO SCH (08:24)
[2017-09-16] MEDS: lamoTRIgine 100 MG TAB PO SCH (08:24)
[2017-09-16] MEDS: LACOSAMIDE 50 MG TABLET PO SCH ×2 (08:24→15:26)
[2017-09-16] MEDS: FAMOTIDINE 20 MG TAB PO SCH (08:24)
[2017-09-16] MEDS: FUROSEMIDE 40 MG TAB PO SCH (08:24)
[2017-09-16] MEDS: POLYETHYLENE GLYCOL 3350 17 GM POWD.PACK PO SCH (08:24)
[2017-09-16] MEDS: CHOLECALCIFEROL 1,000 UNIT TAB PO SCH (08:24)
[2017-09-16] MEDS: ASPIRIN 81 MG PO SCH (08:24)
[2017-09-16] MEDS: TAMSULOSIN 0.4 MG CAP.ER.24H PO SCH (08:24)
[2017-09-16] MEDS: HEPARIN SODIUM,PORCINE 5,000 UNIT/ML 1 ML VIAL SQ SCH (08:25)
--- NOTE | 2017-09-16 10:39 | CDI ---
Last Revision, January 2017 Documentation Clarification Form Date: 09/16/2017 From: Preethi Torres RN Admit Date: 09/13/2017 7:55:00 AM Patient Name: Percy Jean Visit Number: [id number] ATTENTION: The Clinical Documentation Specialists (CDI) and [facility] Coding Staff appreciate your assistance in clarifying documentation. Please respond to the clarification below the line at the bottom and electronically sign. The CDI & [facility] Coding staff will review the response and follow-up if needed. Please note: Queries are made part of the Legal Health Record. If you have any questions, please contact the author of this message via ITS. A diagnosis of UTI has been documented in the ED note . Urine analysis was suspicion for infection and he was admitted. Documented in the H&P, Pt. feels generally weak and this is what happens when he has a UTI according to significant other, and Recurrent Urinary tract infection, failed outpatient treatment. UA is suspicious for infection. Consult from Dr Michel states, He is currently asymptomatic, and in view of this I would define his current condition as bacteriuria, rather than a UTI. History/Risk factors: MS, neurologic bladder, UTI Per documentation in the ED note and H&P this patient was admitted with an indwelling James catheter Per H & P " positive culture for Pseudomonas on 07/24/2017. Over the last 2- 3 days the significant others was noticed that his urine is becoming foul- smelling. and the catheters was blocked with difficulty to flush so decided to come to the emergency room.His James catheter was change in ED. Clinical Indicators: Urinalysis: Urine protein, trace, blood moderate, RBC 13H, WBC >182, WBC clumps many, Leukocyte esterase Large, Amorphous occasional, bacteria rare, mucus rare Urine culture: no growth after 18 hours Lab results: RBC 3.82, HGB 12.1, HCT 36.3, LYM 0.9, CR 0.57 Treatment: James was replace Medications: Ceftazidime IVPB, Rocephin IVPB, Flomax PO daily In your professional opinion, can you please clarify the etiology of the UTI, if known? UTI related to James Catheter UTI not related Dr. Sara Gr, to catheter Other condition, please specify Unable to determine If an infective organism is present, please specify cause and effect relationship if applicable. Please continue to document in your progress notes, under the line below and/or in the discharge summary in order to capture severity of illness and risk of mortality. Include clinical findings that support your diagnosis. MTDD
--- NOTE | 2017-09-16 14:11 | P.DS ---
Providers Date of admission: 09/13/17 07:55 Attending physician: Sara Gr Consults: 09/09/17 12:29 Consult Physician Urgent Consulting Provider: Ronald Stephen Consult Reason/Comments: INFECTION Do you want consulting provider notified?: Yes 09/09/17 12:30 Consult Physician Urgent Consulting Provider: SIMON HARRIS Urology Consult Reason/Comments: CHRONIC HUNT Do you want consulting provider notified?: Yes 09/10/17 20:19 Consult Physician Routine Consulting Provider: Paco Champagne Consult Reason/Comments: debility, MS slow recovery after left leg fracture desires to improve Do you want consulting provider notified?: Yes, Notify in am Primary care physician: Physician Nonstaff Hospital Course: 72 years old female with past medical history of multiple sclerosis, status post cholecystectomy, who presents because of recurrent urinary tract infection for the last 5-6 years. Patient states he has history of MS with neurogenic bladder status post indwelling Hunt catheter for the last 1 year. And he has frequent urinary tract infections he has one in July, and the last one was about 2 weeks ago. He has a visiting doctor once a month with treatment for that. And as per significant other at bedside patient had positive culture for Pseudomonas on 07/24/2017. Over the last 2-3 days the significant others was noticed that his urine is becoming foul-smelling. And the catheters was blocked with difficult to flush started decided to come to the emergency room and his Hunt catheter was change. Urine analysis was suspicion for infection and he was admitted to the hospital for further treatment. Patient also feeling generally weak which is usually happens when he have UTI as per patient and significant other. Patient denies abdominal pain. No chest pain. No dyspnea. No change in bowel habits or fever. Patient at baseline is bed-bound due to his MS disease and History of leg fracture 09/11/2017 Patient still feels generally weak, possibly related to his urinary tract infections on the top of his multiple sclerosis. Patient doesn't have fever no leukocytosis. Patient still needs IV antibiotics. His first urine culture was nonconclusive, a secondary culture was sent last night. Rehab team evaluation is in the process. Patient states he has bedbound for about a year although he was trying to do outpatient physical therapy for short time 09/12/2017 pt states he is still weak, however he is improving , pt/ot evaluated pt for possible rehab, pt could stand at bed side and per pt and they are interested in rehab. UC: negative so far , pt is still on abx. 09/13/1717 Patient lying in bed still feeling little bit weak, but says is improving. No urinary signs and symptoms. No abdominal pain. No chest pain or dyspnea. No change in urine or bowel habits. No fever. Second urine culture: Shows no growth after 18 hours, patient is still on IV antibiotics. Patient is more interested in doing rehab as patient was in bed for about a year due to his multiple multiple sclerosis and deconditioning, social media developer/ trimming caser on the case for possible inpatient physical rehab 09/14/2017 no significant change today Patient lying in bed still feeling little bit weak, but says is improving. No urinary signs and symptoms. No abdominal pain. No chest pain or dyspnea. No change in urine or bowel habits. No fever. Second urine culture: Shows no growth after 18 hours, patient is still on IV antibiotics. Patient is more interested in doing rehab as patient was in bed for about a year due to his multiple multiple sclerosis and deconditioning, social media developer/ trimming caser on the case for possible inpatient physical rehab 09/15/2017 pt is doing well , pt and at bed side state they are going to physical rehab tomorrow. however we will need clearance by infectious team as well as the plan of the antibiotic. 09/16/2017 Patient completed 7 day course of therapy for urinary tract infection appears to be catheter related. Decreasing the dose of lisinopril because of his blood pressure being on the low normal side. GENERAL: The patient is alert and oriented x3, not in any acute distress. Well developed, well nourished. HEENT: Pupils are round and equally reacting to light. EOMI. No scleral icterus. No conjunctival pallor. Normocephalic, atraumatic. No pharyngeal erythema. No thyromegaly. CARDIOVASCULAR: S1 and S2 present. No murmurs, rubs, or gallops. PULMONARY: Chest is clear to auscultation, no wheezing or crackles. ABDOMEN: Soft, nontender, nondistended, normoactive bowel sounds. No palpable organomegaly. genitourinary system: Hunt catheter in a Place, working. With no surrounding leakage. Genitourinary examination was unremarkable MUSCULOSKELETAL: No joint swelling or deformity. EXTREMITIES: No cyanosis, clubbing, or pedal edema. -NEUROLOGICAL: Gross neurological examination did not reveal any new focal deficits. Weakness and bilateral lower limbs -chronic SKIN: No rashes. -Recurrent Urinary tract infection, failed outpatient treatment. Completed ceftazidime course no further antibiotics upon discharge -Multiple sclerosis, continue same treatment, may contribute to a general weakness -Neurogenic bladder, -Hypertension -Chronic low back pain Patient Condition at Discharge: Good Plan - Discharge Summary Discharge Rx Participant: No New Discharge Prescriptions: Continue Ranitidine HCl [Zantac] 150 mg PO BID Cholecalciferol [Vitamin D3] 1,000 unit PO BID Polyethylene Glycol 3350 [Miralax] 17 gm PO BID Lacosamide [Vimpat] 75 mg PO TID Dimethyl Fumarate [Tecfidera] 240 mg PO BID Cyanocobalamin [Vitamin B-12 Injection] 1,000 mcg SQ QMONTH lamoTRIgine [LaMICtal] 200 mg PO BID fentaNYL 50MCG/HR PATCH [Duragesic 50MCG/HR] 50 mcg TRANSDERM Q72H Tamsulosin HCl [Flomax] 0.4 mg PO DAILY Furosemide [Lasix] 40 mg PO DAILY Menthol/Zinc Oxide [Calmoseptine Ointment] 1 applic TOPICAL BID Desenex Topical 1 applic TOPICAL BID PRN PRN Reason: Rash Aspirin EC [Ecotrin Low Dose] 81 mg PO DAILY Changed Lisinopril [Zestril] 5 mg PO DAILY #0 Discharge Medication List Aspirin EC [Ecotrin Low Dose] 81 mg PO DAILY 09/09/17 [History] Cholecalciferol [Vitamin D3] 1,000 unit PO BID 09/09/17 [History] Cyanocobalamin [Vitamin B-12 Injection] 1,000 mcg SQ QMONTH 09/09/17 [History] Desenex Topical 1 applic TOPICAL BID PRN 09/09/17 [History] Dimethyl Fumarate [Tecfidera] 240 mg PO BID 09/09/17 [History] Furosemide [Lasix] 40 mg PO DAILY 09/09/17 [History] Lacosamide [Vimpat] 75 mg PO TID 09/09/17 [History] Menthol/Zinc Oxide [Calmoseptine Ointment] 1 applic TOPICAL BID 09/09/17 [ History] Polyethylene Glycol 3350 [Miralax] 17 gm PO BID 09/09/17 [History] Ranitidine HCl [Zantac] 150 mg PO BID 09/09/17 [History] Tamsulosin HCl [Flomax] 0.4 mg PO DAILY 09/09/17 [History] fentaNYL 50MCG/HR PATCH [Duragesic 50MCG/HR] 50 mcg TRANSDERM Q72H 09/09/17 [ History] lamoTRIgine [LaMICtal] 200 mg PO BID 09/09/17 [History] Lisinopril [Zestril] 5 mg PO DAILY #0 09/16/17 [Rx] Follow up Appointment(s)/Referral(s): [facility], [NON-STAFF] - Nonstaff,Physician [Primary Care Provider] - 1-2 days Activity/Diet/Wound Care/Special Instructions: pts home meds in bin Discharge Disposition: TRANSFER TO SNF/ECF
--- NOTE | 2017-09-17 14:24 | CDI ---
Documentation Clarification Form Date: 09/17/17 From: Rimma Pruitt Phone: If you have question, contact Bibi Garcia Aeronautical Engineering Officer at [phone] M-F 8:30 am to 6pm Admit Date: 09/13/2017 7:55:00 AM Patient Name: Percy Jean Visit Number: [id number] Discharge Date: 09/16/17 ATTENTION: The Clinical Documentation Specialists (CDI) and [facility] Coding Staff appreciate your assistance in clarifying documentation. Please respond to the clarification below the line at the bottom and electronically sign. The CDI & [facility] Coding staff will review the response and follow-up if needed. Please note: Queries are made part of the Legal Health Record. If you have any questions, please contact the author of this message via ITS. Dr. 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 History/Risk Factors: Multiple sclerosis, patient has been bedbound for a year. Please clarify the word paraplasia as there is no medical term to describe it. paraplagia MTDD
[2017-09-27] MEDS ORDERED: CYANOCOBALAMIN 1,000 MCG/ML 1 ML VIAL IM SCH (09:00)
== END 2017-09-16 16:45 | DRG 699 ==
LOC: EC 03:52 → 3SUR 06:44 → OBSVTOIN 09-13 07:55
PROVIDERS: ADMIT Hospitalist; ATTEND Hospitalist
DX: T83.511A Infection and inflammatory reaction due to indwelling urethral catheter, initial encounter (principal); G82.20 Paraplegia, unspecified; N39.0 Urinary tract infection, site not specified; G35 Multiple sclerosis; Z90.49 Acquired absence of other specified parts of digestive tract; Z87.891 Personal history of nicotine dependence; Z74.01 Bed confinement status; Z80.0 Family history of malignant neoplasm of digestive organs; N31.9 Neuromuscular dysfunction of bladder, unspecified; Z87.440 Personal history of urinary (tract) infections
CPT/HCPCS: 80048; 81001; 81003; 85025; 85610; 85730; 87086; 96361; 96374; 99284